=== PATIENT | female | born 1955 | race Caucasian/White ===

== ENCOUNTER 2016-08-01 06:44 | Emergency (ER) | payer MEDICAID ==
[2016-08-01 07:18] VITALS: BP 125/71
[2016-08-01] MEDS ORDERED: Acetaminophen/HYDROcodone 325-5 MG Tab PO ONE (07:43)
[2016-08-01] MEDS ORDERED: Albuterol/Ipratropium 3.0-0.5 MG/3 ML Neb Soln NEB ONE (07:43)
--- NOTE | 2016-08-01 08:23 | EDM.PDOC ---
ED HPI GENERAL MEDICAL PROBLEM - General Chief Complaint: Cardiovascular Problem Stated Complaint: SWOLLEN LT LEG Time Seen by Provider: 08/01/16 07:00 Source of Information: Reports: Patient, Family History Limitations: Reports: Physical Impairment - History of Present Illness Onset Date: 07/27/16 Onset Time: 17:00 Duration: Day(s): Location: Reports: Lower Extremity, Left, Lower Extremity, Right Bilateral Lower Leg Pain Score (Numeric/FACES): 5 - Related Data Allergies Allergy/AdvReac Type Severity Reaction Status Date / Time acetaminophen [From Percocet] Allergy Rash Verified 08/01/16 07:37 aspirin [From Percodan] Allergy Rash Verified 08/01/16 07:37 carbamazepine [From Tegretol] Allergy Confusion Verified 08/01/16 07:37 codeine Allergy Cannot Verified 08/01/16 07:37 Remember meperidine [From Demerol] Allergy Rash Verified 08/01/16 07:37 morphine Allergy Rash Verified 08/01/16 07:37 oxycodone [From Percocet] Allergy Rash Verified 08/01/16 07:37 Home Meds: Home Meds Acetaminophen/HYDROcodone [[place] 325-5 MG] 1 tab PO ONETIME PRN #2 tablet [Rx] Albuterol [Proventil Neb Soln] 2.5 mg .XX Q6HR PRN 08/01/16 [History] Aspirin [Halfprin] 81 mg PO DAILY 08/01/16 [History] Citalopram [Celexa] 20 mg PO DAILY 08/01/16 [History] ClonazePAM [KlonoPIN] 0.5 mg PO BID PRN 08/01/16 [History] rOPINIRole [Requip] 0.5 mg PO BEDTIME 08/01/16 [History] traZODone 50 mg PO BEDTIME 08/01/16 [History] ED ROS GENERAL - Review of Systems Review Of Systems: See Below Constitutional: Reports: No Symptoms HEENT: Reports: No Symptoms Respiratory: Reports: Wheezing Cardiovascular: Reports: No Symptoms Endocrine: Reports: No Symptoms GI/Abdominal: Reports: No Symptoms : Reports: No Symptoms Musculoskeletal: Reports: Foot Pain, Other (lower legs swelling) Skin: Reports: No Symptoms Neurological: Reports: No Symptoms Psychiatric: Reports: No Symptoms Hematologic/Lymphatic: Reports: No Symptoms Immunologic: Reports: No Symptoms ED EXAM, GENERAL - Physical Exam Exam: See Below Exam Limited By: No Limitations General Appearance: Alert, WD/WN, Moderate Distress Eye Exam: Bilateral Eye: Normal Inspection Ears: Normal External Exam Ear Exam: Bilateral Ear: Auricle Normal Nose: Normal Inspection Throat/Mouth: Normal Inspection, Normal Lips Head: Atraumatic, Normocephalic Neck: Normal Inspection, Supple, Non-Tender, Full Range of Motion Respiratory/Chest: Wheezing Cardiovascular: Normal Peripheral Pulses, Regular Rate, Rhythm, No Edema, No Gallop, No JVD, No Murmur, No Rub Peripheral Pulses: 2+: Femoral (L), Femoral (R) GI/Abdominal: Normal Bowel Sounds, Soft, Non-Tender, No Organomegaly, No Distention, No Abnormal Bruit (Female) Exam: Deferred Rectal (Female) Exam: Normal Exam Back Exam: Normal Inspection Extremities: Pedal Edema, Joint Swelling, Leg Pain Neurological: Alert, Oriented, CN II-XII Intact, Normal Cognition Psychiatric: Normal Affect, Normal Mood Course - Vital Signs Last Recorded V/S: Last Vital Signs Temp 36.5 C 08/01/16 07:00 Pulse 90 08/01/16 08:00 Resp 18 08/01/16 07:00 BP 125/71 08/01/16 07:00 Pulse Ox 94 L 08/01/16 08:00 - Orders/Labs/Meds Labs: Laboratory Tests 08/01/16 08/01/16 08/01/16 Range/Units 08:00 08:00 08:00 WBC 11.8 (4.5-12.0) X10-3/uL RBC 4.19 (3.23-5.20) x10(6)uL Hgb 12.8 (11.5-15.5) g/dL Hct 37.8 (30.0-51.3) % MCV 90.3 (80-96) fL MCH 30.6 (27.7-33.6) pg MCHC 33.8 (32.2-35.4) g/dL RDW 14.1 (11.5-15.5) % Plt Count 191 (125-369) X10(3)uL MPV 8.0 (7.4-10.4) fL Neut % (Auto) 73.5 (46-82) % Lymph % (Auto) 16.7 (13-37) % [place] % (Auto) 8.2 (4-12) % Eos % (Auto) 1 (1.0-5.0) % Baso % (Auto) 0 (0-2) % Neut # (Auto) 8.6 H (1.6-8.3) # Lymph # (Auto) 2.0 (0.6-5.0) # [place] # (Auto) 1.0 (0.0-1.3) # Eos # (Auto) 0.2 (0.0-0.8) # Baso # (Auto) 0.0 (0.0-0.2) # Sodium 136 (135-145) mmol/L Potassium 3.6 (3.5-5.3) mmol/L Chloride 100 (100-110) mmol/L Carbon Dioxide 28 (23-29) mmol/L BUN 10 (8-23) mg/dL Creatinine 0.7 (0.6-1.3) mg/dL Est Cr Clr Drug Dosing 61.39 mL/min Estimated GFR (MDRD) > 60 (>60) BUN/Creatinine Ratio 14.3 (9-20) Glucose 118 H (80-116) mg/dL Calcium 8.6 (8.6-10.2) mg/dL B-Natriuretic Peptide 15 (0-100) pg/mL Meds: Medications Discontinued Medications Generic Name Dose Route Start Last Admin Trade Name Freq PRN Reason Stop Dose Admin Hydrocodone Bitart/Acetaminophen 1 tab 08/01/16 07:43 08/01/16 08:06 [place] 325-5 Mg PO 08/01/16 07:44 1 tab ONETIME ONE Administration Albuterol/Ipratropium 3 ml 08/01/16 07:43 08/01/16 07:54 Duoneb 3.0-0.5 Mg/3 Ml NEB 08/01/16 07:44 3 ml ONETIME ONE Administration Departure - Departure Time of Disposition: 08:59 Disposition: Home, Self-Care 01 Condition: good Clinical Impression: Lymphedema of both lower extremities Prescriptions: Acetaminophen/HYDROcodone [[place] 325-5 MG] 1 tab PO ONETIME PRN #2 tablet PRN Reason: severe pain only Referrals: Jorge A Ortiz MD [Primary Care Provider] - Forms: ED Department Discharge Additional Instructions: Please elevate both lower extremities above your heart, please apply SHEILA wraps to your lower extremities when in upright position, please follow up, please come back to the ed if your symptoms get worse acutely.
== END 2016-08-01 09:15 | disposition home or self-care (01) ==
LOC: FB.ED 06:44
DX: I89.0 Lymphedema, not elsewhere classified (principal); Z88.5 Allergy status to narcotic agent; Z88.6 Allergy status to analgesic agent; Z79.82 Long term (current) use of aspirin; Z79.899 Other long term (current) drug therapy
CPT/HCPCS: 36415; 80048; 83880; 85025; 94664; 99284; A9270; J7620

== ENCOUNTER 2016-08-31 07:38 | Day surgery (SDC) | payer MEDICAID ==
[~2016-08-31 07:38] MED LIST: Lactated Ringers 1,000 ML IV SCH
[2016-08-31] MEDS ORDERED: Lidocaine 2% 100 MG/5 ML Syringe IVPUSH ONE (08:35)
[2016-08-31] MEDS ORDERED: Lactated Ringers 1,000 ML IV ONE (08:35)
[2016-08-31] MEDS ORDERED: Midazolam 1 MG/ML 2 ML SDV IV ONE (08:35)
[2016-08-31] MEDS ORDERED: Propofol 200 MG/20 ML SDV IV ONE (08:35)
--- NOTE | 2016-08-31 09:03 | PCM.OPNOTE ---
- General Post-Op/Procedure Note Date of Surgery/Procedure: 08/31/16 Operative Procedure(s): egd with bx Findings: gastroduodenitis antral ulcer esophagitis Pre Op Diagnosis: gerd. pill esophagitis Post-Op Diagnosis: gastroduodenitis antral ulcer. esophagitis Anesthesia Technique: [facility] [place] Primary Surgeon: Kyle Erickson Anesthesia Provider: Estephania Garcia Pathology: duodenum stomach (antrum and including ulcer edge) distal esophagus Complications: None Condition: Good Free Text/Narrative:: see dictation
[2016-08-31 09:53] VITALS: BP 135/68
--- NOTE | 2016-08-31 11:26 | OR ---
DATE OF OPERATION: 08/31/2016 SURGEON: Kyle Erickson MD PROCEDURE PERFORMED: Esophagogastroduodenoscopy with cold forceps biopsy. PREOPERATIVE DIAGNOSIS: History of gastroesophageal reflux disease and questionable pill esophagitis. POSTOPERATIVE DIAGNOSIS: Esophagitis and gastroduodenitis with gastritis limited to the antrum as well as what appears to be a healing gastric ulcer of the antrum. INDICATIONS FOR PROCEDURE: This is a 61-year-old white female, who was referred with a complaint of some pill dysphagia, and has gotten fairly better. She also has a longstanding history of reflux. She was offered and accepted an EGD as part of her evaluation. DESCRIPTION OF PROCEDURE: After an excellent IV sedation was administered, the bite block was inserted. The flexible endoscope was passed without difficulty deep down the patient's esophagus into the stomach. Stomach was insufflated. Scope was passed through the pylorus to the second portion of duodenum and slowly withdrawn. The following findings were noted. First portion of duodenum demonstrates mild gastritis. Photos and biopsies were taken. Stomach: In the antrum, there was marked inflammation what appears to be healing ulcer. Biopsies were taken of the ulcer as well as the antrum. GE junction measured approximately 35 cm and was a regular with findings highly consistent with Martin's. Biopsies were taken. The remainder of the esophagus was carefully inspected and I did not note any ulcerations or irritation suggestive of healing ulcer from pill. The stomach was deflated. The scope was removed. The patient tolerated the procedure well and was taken to recovery room in good condition. /[id number] /MODL
== END 2016-08-31 10:10 | disposition home or self-care (01) ==
LOC: FB.SDS 07:38
PROVIDERS: ATTEND Surgery
PROC: 0DB98ZX Excision of Duodenum, Via Natural or Artificial Opening Endoscopic, Diagnostic (ICD-10-PCS; principal; 2016-08-31)
PROC: 0DB48ZX Excision of Esophagogastric Junction, Via Natural or Artificial Opening Endoscopic, Diagnostic (ICD-10-PCS; 2016-08-31)
DX: K20.8 Other esophagitis (principal); K29.80 Duodenitis without bleeding; K29.50 Unspecified chronic gastritis without bleeding; K31.9 Disease of stomach and duodenum, unspecified
CPT/HCPCS: 43239; 88305; 88313; 88342; J2250; J2704; J7120

== ENCOUNTER → 2019-01-25 | Outpatient (CLI) | payer MEDICARE, MEDICAID | LOC: FB.MH 08:00 | PROVIDERS: ATTEND Psychiatry & Neurology Psychiatry | DX: F32.9 Major depressive disorder, single episode, unspecified (principal) | CPT/HCPCS: 90792 ==

== ENCOUNTER 2019-03-22 17:11 | Inpatient (IN) | payer MEDICARE, MEDICAID ==
[2019-03-22] MEDS ORDERED: Albuterol/Ipratropium 3.0-0.5 MG/3 ML Neb Soln NEB ONE (17:35)
[2019-03-22] MEDS ORDERED: Dexamethasone 4 MG/ML SDV IVPUSH ONE (17:35)
--- NOTE | 2019-03-22 17:42 | EDM.PDOC ---
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 Denies chest pain or h/o CAD. Has been using her nebulizers w/o improvement. Has had subjective fevers and chills. Did not receive the flu shot this season. Patient believes she may have pneumonia. Duration: Day(s): (5) Severity: Moderate - Related Data Allergies Allergy/AdvReac Type Severity Reaction Status Date / Time acetaminophen [From Percocet] Allergy Rash Verified 08/31/16 07:55 carbamazepine [From Tegretol] Allergy Confusion Verified 08/31/16 07:55 codeine Allergy Cannot Verified 08/31/16 07:55 Remember meperidine [From Demerol] Allergy Rash Verified 08/31/16 07:55 morphine Allergy Rash Verified 08/31/16 07:55 oxycodone [From Percocet] Allergy Rash Verified 08/31/16 07:55 Home Meds: Home Meds Albuterol [Proventil Neb Soln] 2.5 mg .XX TID 08/01/16 [History] Citalopram [Citalopram HBr] 20 mg PO DAILY 08/01/16 [History] ClonazePAM [KlonoPIN] 0.5 mg PO BID 08/01/16 [History] rOPINIRole [Requip] 0.5 - 1 mg PO BEDTIME PRN 08/01/16 [History] traZODone 50 mg PO BEDTIME PRN 08/01/16 [History] Albuterol [Ventolin HFA] 1 puff IH Q4H PRN 08/30/16 [History] Cyclobenzaprine [Flexeril] 5 mg PO TID 08/30/16 [History] Pantoprazole Sodium [Protonix] 40 mg PO DAILY #30 tablet. 08/31/16 [Rx] Past Medical History HEENT History: Reports: Allergic Rhinitis Cardiovascular History: Reports: Hypertension Respiratory History: Reports: COPD, Other (See Below) Other Respiratory History: PULMONARY EMPHYSEMA; LUNG NODULE Gastrointestinal History: Reports: GERD PARK GUIDE History: Reports: Other PARK GUIDE History: x2, hyst Musculoskeletal History: Reports: None Neurological History: Reports: Other (See Below) Other Neuro History: RESTLESS LEG SYNDROME. INSOMNIA Psychiatric History: Reports: Addiction, Anxiety, Bipolar, Depression, Psych Hospitalization(s) Hematologic History: Reports: Anemia Immunologic History: Reports: None Oncologic (Cancer) History: Reports: None Dermatologic History: Reports: None - Past Surgical History Head Surgeries/Procedures: Reports: None HEENT Surgical History: Reports: Tonsillectomy GI Surgical History: Reports: Appendectomy, Hernia, Abdominal Female Surgical History: Reports: Breast Reduction, Section, Hysterectomy Social & Family History - Family History Cardiac: Reports: CAD, Hypertension, [place] - Tobacco Use Tobacco Use Within Last Twelve Months: No - Caffeine Use Caffeine Use: Reports: Coffee, Soda ED ROS GENERAL - Review of Systems Review Of Systems: Comprehensive ROS is negative, except as noted in HPI. ED EXAM, GENERAL - Physical Exam Exam: See Below Exam Limited By: No Limitations General Appearance: Alert, WD/WN, No Apparent Distress Throat/Mouth: No Airway Compromise Head: Atraumatic, Normocephalic Neck: Full Range of Motion Respiratory/Chest: No Respiratory Distress, Decreased Breath Sounds, Wheezing Cardiovascular: Regular Rate, Rhythm, No Murmur Extremities: Non-Tender, No Pedal Edema Neurological: Alert, Normal Cognition, No Motor/Sensory Deficits Psychiatric: Normal Affect, Normal Mood Skin Exam: Warm, Dry, Intact EKG INTERPRETATION EKG Date: 03/22/19 Time: 17:26 Rhythm: Other (sinus tachycardia) Rate (Beats/Min): 115 [place]: Normal P-Wave: Present QRS: Normal ST-T: Normal QT: Normal Course - Vital Signs Last Recorded V/S: Last Vital Signs Temp 36.9 C 03/22/19 17:11 Pulse 117 H 03/22/19 17:11 Resp 32 H 03/22/19 17:11 BP 132/47 L 03/22/19 17:11 Pulse Ox 94 L 03/22/19 17:11 - Orders/Labs/Meds Orders: Active Orders 24 hr Category Date Time Status EKG Documentation Completion [RC] ASDIRECTED Care 03/22/19 17:31 Active RT Aerosol Therapy [RC] ASDIRECTED Care 03/22/19 17:36 Active CXR [Chest 1V Frontal] [CR] Stat Exams 03/22/19 17:31 Taken CULTURE BLOOD [BC] Urgent Lab 03/22/19 17:40 Received CULTURE BLOOD [BC] Urgent Lab 03/22/19 17:50 Received Sodium Chloride 0.9% [Saline Flush] Med 03/22/19 17:34 Active 10 ml FLUSH ASDIRECTED PRN Blood Culture x2 Reflex Set [OM.PC] Urgent Oth 03/22/19 17:32 Ordered Saline Lock Insert [OM.PC] Routine Oth 03/22/19 17:34 Ordered EKG 12 Lead [EK] Stat Ther 03/22/19 17:31 Ordered Medication Orders Sodium Chloride (Saline Flush) 10 ml FLUSH ASDIRECTED PRN PRN Reason: Keep Vein Open Last Admin: 03/22/19 19:10 Dose: 10 ml Labs: Laboratory Tests 03/22/19 03/22/19 03/22/19 Range/Units 17:40 17:40 17:40 WBC 5.7 (4.5-12.0) X10-3/uL RBC 4.63 (3.23-5.20) x10(6)uL Hgb 14.0 (11.5-15.5) g/dL Hct 42.4 (30.0-51.3) % MCV 91.4 (80-96) fL MCH 30.3 (27.7-33.6) pg MCHC 33.1 (32.2-35.4) g/dL RDW 12.1 (11.5-15.5) % Plt Count 164 (125-369) X10(3)uL MPV 8.5 (7.4-10.4) fL Neut % (Auto) 76.8 (46-82) % Lymph % (Auto) 12.3 L (13-37) % [place] % (Auto) 10.8 (4-12) % Eos % (Auto) 0 L (1.0-5.0) % Baso % (Auto) 0 (0-2) % Neut # (Auto) 4.4 (1.6-8.3) # Lymph # (Auto) 0.7 (0.6-5.0) # [place] # (Auto) 0.6 (0.0-1.3) # Eos # (Auto) 0.0 (0.0-0.8) # Baso # (Auto) 0.0 (0.0-0.2) # PT 9.3 (8.7-11.1) INR 0.96 (0.89-1.13) APTT 28.3 (24.4-33.2) SECONDS D-Dimer, Quantitative 0.50 (0.0-0.59) mg/LFEU POC VBG pH (7.31-7.41) POC VBG pCO2 (41-51) mmHG POC VBG HCO3 (23-28) mmol/L POC VBG Total CO2 (24-29) mmol/L POC VBG Base Excess (-2-3) mmol/L Sodium 135 (135-145) mmol/L Potassium 3.4 L (3.5-5.3) mmol/L Chloride 96 L (100-110) mmol/L Carbon Dioxide 31 (21-32) mmol/L BUN 12 (7-18) mg/dL Creatinine 0.6 (0.55-1.02) mg/dL Est Cr Clr Drug Dosing TNP Estimated GFR (MDRD) > 60 (>60) BUN/Creatinine Ratio 20.0 (9-20) Glucose 144 H (80-116) mg/dL Lactic Acid (0.4-2.0) mmol/L Calcium 8.0 L (8.6-10.2) mg/dL Total Bilirubin 0.7 (0.1-1.3) mg/dL AST 51 H (5-25) IU/L ALT 33 (12-36) U/L Alkaline Phosphatase 78 (56-112) IU/L Troponin I (<0.017-0.056) ng/mL Total Protein 6.8 (6.0-8.0) g/dL Albumin 3.3 (3.2-4.6) g/dL Globulin 3.5 g/dL Albumin/Globulin Ratio 0.9 03/22/19 03/22/19 03/22/19 Range/Units 17:40 17:50 20:27 WBC (4.5-12.0) X10-3/uL RBC (3.23-5.20) x10(6)uL Hgb (11.5-15.5) g/dL Hct (30.0-51.3) % MCV (80-96) fL MCH (27.7-33.6) pg MCHC (32.2-35.4) g/dL RDW (11.5-15.5) % Plt Count (125-369) X10(3)uL MPV (7.4-10.4) fL Neut % (Auto) (46-82) % Lymph % (Auto) (13-37) % [place] % (Auto) (4-12) % Eos % (Auto) (1.0-5.0) % Baso % (Auto) (0-2) % Neut # (Auto) (1.6-8.3) # Lymph # (Auto) (0.6-5.0) # [place] # (Auto) (0.0-1.3) # Eos # (Auto) (0.0-0.8) # Baso # (Auto) (0.0-0.2) # PT (8.7-11.1) INR (0.89-1.13) APTT (24.4-33.2) SECONDS D-Dimer, Quantitative (0.0-0.59) mg/LFEU POC VBG pH 7.33 (7.31-7.41) POC VBG pCO2 57.5 H (41-51) mmHG POC VBG HCO3 30.3 H (23-28) mmol/L POC VBG Total CO2 32 H (24-29) mmol/L POC VBG Base Excess 4 H (-2-3) mmol/L Sodium (135-145) mmol/L Potassium (3.5-5.3) mmol/L Chloride (100-110) mmol/L Carbon Dioxide (21-32) mmol/L BUN (7-18) mg/dL Creatinine (0.55-1.02) mg/dL Est Cr Clr Drug Dosing Estimated GFR (MDRD) (>60) BUN/Creatinine Ratio (9-20) Glucose (80-116) mg/dL Lactic Acid 1.0 (0.4-2.0) mmol/L Calcium (8.6-10.2) mg/dL Total Bilirubin (0.1-1.3) mg/dL AST (5-25) IU/L ALT (12-36) U/L Alkaline Phosphatase (56-112) IU/L Troponin I < 0.017 L (<0.017-0.056) ng/mL Total Protein (6.0-8.0) g/dL Albumin (3.2-4.6) g/dL Globulin g/dL Albumin/Globulin Ratio Meds: Medications Generic Name Dose Route Start Last Admin Trade Name Freq PRN Reason Stop Dose Admin Sodium Chloride 10 ml 03/22/19 17:34 03/22/19 19:10 Saline Flush FLUSH 10 ml ASDIRECTED PRN Administration Keep Vein Open Discontinued Medications Generic Name Dose Route Start Last Admin Trade Name Freq PRN Reason Stop Dose Admin Albuterol/Ipratropium 3 ml 03/22/19 17:35 03/22/19 19:05 Duoneb 3.0-0.5 Mg/3 Ml NEB 03/22/19 17:36 3 ml ONETIME ONE Administration Dexamethasone 10 mg 03/22/19 17:35 03/22/19 19:05 Dexamethasone IVPUSH 03/22/19 17:36 10 mg ONETIME ONE Administration Oseltamivir Phosphate 75 mg 03/22/19 19:21 03/22/19 19:49 Tamiflu PO 03/22/19 19:22 75 mg ONETIME ONE Administration - Radiology Interpretation Free Text/Narrative:: CXR: Hyperinflation, no infiltrates, no cardiomegaly. (ED provider interpretation) - Re-Assessments/Exams Free Text/Narrative Re-Assessment/Exam: 03/22/19 21:11 Symptoms improved after Duoneb and Decadron 10mg IV. Improved expiratory wheeze and aeration on re-exam. Departure - Departure Time of Disposition: 21:14 Disposition: Admitted As Inpatient 66 Condition: Fair Clinical Impression: Influenza A, COPD exacerbation - Discharge Information *PRESCRIPTION DRUG MONITORING PROGRAM REVIEWED*: No *COPY OF PRESCRIPTION DRUG MONITORING REPORT IN PATIENT ALBIN: Not Applicable Forms: ED Department Discharge Sepsis Event Note - Focused Exam Vital Signs: Vital Signs Temp Pulse Resp BP Pulse Ox 03/22/19 17:11 36.9 C 117 H 32 H 132/47 L 94 L Date Exam was Performed: 03/22/19 Time Exam was Performed: 21:03 - My Orders Last 24 Hours: My Active Orders 03/22/19 17:31 EKG Documentation Completion [RC] ASDIRECTED CXR [Chest 1V Frontal] [CR] Stat EKG 12 Lead [EK] Stat 03/22/19 17:32 Blood Culture x2 Reflex Set [OM.PC] Urgent 03/22/19 17:34 Sodium Chloride 0.9% [Saline Flush] 10 ml FLUSH ASDIRECTED PRN Saline Lock Insert [OM.PC] Routine 03/22/19 17:36 RT Aerosol Therapy [RC] ASDIRECTED 03/22/19 17:40 CULTURE BLOOD [BC] Urgent 03/22/19 17:50 CULTURE BLOOD [BC] Urgent - Assessment/Plan Last 24 Hours: My Active Orders 03/22/19 17:31 EKG Documentation Completion [RC] ASDIRECTED CXR [Chest 1V Frontal] [CR] Stat EKG 12 Lead [EK] Stat 03/22/19 17:32 Blood Culture x2 Reflex Set [OM.PC] Urgent 03/22/19 17:34 Sodium Chloride 0.9% [Saline Flush] 10 ml FLUSH ASDIRECTED PRN Saline Lock Insert [OM.PC] Routine 03/22/19 17:36 RT Aerosol Therapy [RC] ASDIRECTED 03/22/19 17:40 CULTURE BLOOD [BC] Urgent 03/22/19 17:50 CULTURE BLOOD [BC] Urgent
[2019-03-22] MEDS: Sodium Chloride 0.9% 10 ML Syringe FLUSH PRN ×2 (19:10→22:13)
[2019-03-22] MEDS ORDERED: Oseltamivir 75 MG Cap PO ONE (19:21)
[2019-03-22] MEDS ORDERED: Albuterol 0.083% 2.5 MG/3 ML Neb Soln NEB PRN (21:34)
[2019-03-22] MEDS ORDERED: traZODone 50 MG Tab PO PRN (21:44)
[2019-03-22] MEDS ORDERED: rOPINIRole 0.5 MG Tab PO PRN (21:44)
[2019-03-22] MEDS: methylPREDNISolone Sodium Succinate 40 MG/1 ML SDV IVPUSH SCH (22:13)
[2019-03-23] MEDS: methylPREDNISolone Sodium Succinate 40 MG/1 ML SDV IVPUSH SCH (05:18)
[2019-03-23] MEDS: Sodium Chloride 0.9% 10 ML Syringe FLUSH PRN (05:19)
[2019-03-23] MEDS: Albuterol/Ipratropium 3.0-0.5 MG/3 ML Neb Soln INH SCH ×4 (06:21→20:02)
[2019-03-23] MEDS ORDERED: Temazepam 15 MG Cap PO PRN ×2 (08:40→09:13)
[2019-03-23] MEDS ORDERED: Pantoprazole 40 MG Tab.CR PO SCH ×3 (09:00→21:00)
[2019-03-23] MEDS ORDERED: Cyclobenzaprine 10 MG Tab PO SCH (09:00)
[2019-03-23] MEDS ORDERED: Cyclobenzaprine 10 MG Tab PO PRN (09:00)
[2019-03-23] MEDS ORDERED: ClonazePAM 0.5 MG Tab PO SCH (09:00)
[2019-03-23] MEDS ORDERED: Citalopram 20 MG Tab PO SCH (09:00)
[2019-03-23] MEDS: Enoxaparin 40 MG/0.4 ML Syringe SUBCUT SCH (10:22)
[2019-03-23] MEDS: Rosuvastatin 10 MG Tab PO SCH (10:22)
[2019-03-23] MEDS: predniSONE 20 MG Tab PO SCH (10:22)
[2019-03-23] MEDS: Oseltamivir 75 MG Cap PO SCH ×2 (10:30→20:03)
[2019-03-23] MEDS ORDERED: methylPREDNISolone Sodium Succinate 125 MG/2 ML SDV IVPUSH SCH (11:00)
--- NOTE | 2019-03-23 12:11 | CR ---
INDICATION: Short of breath. CHEST, ONE VIEW: Portable AP upright view of the chest 03/22/[address] of the chest 09/28/18 as well as chest x-ray from 08/27/16 again revealing findings compatible with COPD. Heavy markings are noted at the lung bases making it difficult to exclude patchy bronchopneumonia. The heart did not appear enlarged and appeared similar in size to the previous examinations. The aorta is calcified in the arch area. Overlying EKG leads are noted. There is again noted evidence of exogenous obesity, but to a greater extent than on the previous study. IMPRESSION: 1. No definite acute process, but difficult to exclude areas of patchy bronchopneumonia at the lung bases - full inspiration PA and lateral views of the chest may be helpful for further evaluation. 2. ASD aorta. 3. COPD. 4. Exogenous obesity. MTDD
[2019-03-23] MEDS ORDERED: Magnesium Hydroxide 400 MG/5 ML Susp 30 ML Cup PO PRN (13:54)
[2019-03-23] MEDS ORDERED: Naproxen 500 MG Tab PO PRN (14:21)
--- NOTE | 2019-03-23 16:06 | PCM.HP.2 ---
H&P History of Present Illness - General Date of Service: 03/23/19 Admit Problem/Dx: Admission Diagnosis/Problem Admission Diagnosis/Problem COPD with acute lower respiratory infection Source of Information: Patient, EMS Notes Reviewed History Limitations: Reports: No Limitations - History of Present Illness Initial Comments - Free Text/Narative: This is a 64 year-old oxygen dependent patient with COPD. He states 5 days ago she was exposed to her grandchildren that had influenza. She did not get a flu shot this year. She had a cough for the first 3 days, fevers, chills, body aches. Most that got better except for the cough and then she became very short of breath. She came to the ER and then was admitted. DENIES ANY PAIN WHEN ASKED AT PRESENT TIME. Pain Score (Numeric/FACES): 0 CORY.LOWER BACK AND NECK Pain Score (Numeric/FACES): 3 - Related Data Allergies/Adverse Reactions: Allergies Allergy/AdvReac Type Severity Reaction Status Date / Time acetaminophen [From Percocet] Allergy Rash Verified 03/22/19 23:44 carbamazepine [From Tegretol] Allergy Confusion Verified 03/22/19 23:44 codeine Allergy Cannot Verified 03/22/19 23:44 Remember meperidine [From Demerol] Allergy Rash Verified 03/22/19 23:44 morphine Allergy Rash Verified 03/22/19 23:44 oxycodone [From Percocet] Allergy Rash Verified 03/22/19 23:44 Home Medications: Home Meds ClonazePAM [KlonoPIN] 0.5 mg PO BID PRN 08/01/16 [History] rOPINIRole [Requip] 0.5 - 1 mg PO BEDTIME PRN 08/01/16 [History] Albuterol [Ventolin HFA] 1 - 2 puff IH Q4H PRN 08/30/16 [History] Cyclobenzaprine [Flexeril] 5 mg PO TID PRN 08/30/16 [History] Albuterol/Ipratropium [DuoNeb 3.0-0.5 MG/3 ML] 3 ml IH TID 03/23/19 [History] Fluticasone/Umeclidin/Vilanter [Trelegy Ellipta 100-62.5-25] 1 inh INH DAILY [History] Pantoprazole Sodium [Protonix] 40 mg PO BEDTIME 03/23/19 [History] Temazepam 15 mg PO BEDTIME PRN 03/23/19 [History] Past Medical History HEENT History: Reports: Allergic Rhinitis Cardiovascular History: Reports: Hypertension Respiratory History: Reports: COPD, Other (See Below) Other Respiratory History: PULMONARY EMPHYSEMA; LUNG NODULE Gastrointestinal History: Reports: [employer] History: Reports: Other OB/BYN History: x2, hyst Musculoskeletal History: Reports: None Neurological History: Reports: Other (See Below) Other Neuro History: RESTLESS LEG SYNDROME. INSOMNIA Psychiatric History: Reports: Addiction, Anxiety, Bipolar, Depression, Psych Hospitalization(s) Hematologic History: Reports: Anemia Immunologic History: Reports: None Oncologic (Cancer) History: Reports: None Dermatologic History: Reports: Cellulitis - Infectious Disease History Infectious Disease History: Reports: Chicken Pox, Measles, Mumps, Pertussis ( Whooping Cough), Scarlet Fever - Past Surgical History Head Surgeries/Procedures: Reports: None HEENT Surgical History: Reports: Tonsillectomy Cardiovascular Surgical History: Reports: None Respiratory Surgical History: Reports: None GI Surgical History: Reports: Appendectomy, Hernia, Abdominal Female Surgical History: Reports: Breast Reduction, Section, Hysterectomy Neurological Surgical History: Reports: None Social & Family History - Family History Family Medical History: Noncontributory Cardiac: Reports: CAD, Hypertension, IN - Tobacco Use Smoking Status *Q: Former Smoker Years of Tobacco use: 48 Packs/Tins Daily: 0.2 Used Tobacco, but Quit: Yes Month/Year Tobacco Last Used: Second Hand Smoke Exposure: No - Caffeine Use Caffeine Use: Reports: Soda Other Caffeine Use: 5 a day - Recreational Drug Use Recreational Drug Use: No H&P Review of Systems - Review of Systems: Review Of Systems: See Below General: Denies: Fever, Chills, Malaise, Weakness, Decreased Appetite HEENT: Reports: No Symptoms Pulmonary: Reports: Shortness of Breath, Cough. Denies: Wheezing, Pleuritic Chest Pain, Sputum, Hemoptysis Cardiovascular: Reports: No Symptoms Gastrointestinal: Reports: No Symptoms Genitourinary: Reports: No Symptoms Musculoskeletal: Reports: No Symptoms Skin: Reports: No Symptoms Psychiatric: Reports: No Symptoms Neurological: Reports: No Symptoms Hematologic/Lymphatic: Reports: No Symptoms Immunologic: Reports: No Symptoms Exam - Exam Exam: See Below - Vital Signs Vital Signs: Last Vital Signs Temp 97.3 F 03/23/19 07:45 Pulse 101 H 03/23/19 10:47 Resp 30 H 03/23/19 07:45 BP 161/76 H 03/23/19 07:45 Pulse Ox 99 03/23/19 07:45 Weight: 141 lb 14.4 oz - Exam General: Alert, Oriented, Cooperative HEENT: PERRLA, Hearing Intact, Mucosa Moist & Colome, Posterior Pharynx Clear, TMs Clear Neck: Supple, Trachea Midline Lungs: Normal Respiratory Effort, Decreased Breath Sounds, Rhonchi (Occasional) Cardiovascular: Regular Rate, Regular Rhythm. No: Systolic Murmur GI/Abdominal Exam: Normal Bowel Sounds, Soft, Non-Tender, No Organomegaly, No Distention, No Abnormal Bruit, No Mass Extremities: Normal Inspection, Normal Range of Motion, Non-Tender, No Pedal Edema Skin: Warm, Dry, Intact Neuro Extensive - Mental Status: Alert, Oriented x3, Normal Mood/Affect, Normal Cognition Neuro Extensive - Motor, Sensory, Reflexes: Normal Gait Psychiatric: Alert, Normal Affect, Normal Mood - Patient Data Lab Results Last 24 hrs: Laboratory Results - last 24 hr 03/22/19 03/22/19 03/22/19 Range/Units 17:40 17:40 17:40 WBC 5.7 (4.5-12.0) X10-3/uL RBC 4.63 (3.23-5.20) x10(6)uL Hgb 14.0 (11.5-15.5) g/dL Hct 42.4 (30.0-51.3) % MCV 91.4 (80-96) fL MCH 30.3 (27.7-33.6) pg MCHC 33.1 (32.2-35.4) g/dL RDW 12.1 (11.5-15.5) % Plt Count 164 (125-369) X10(3)uL MPV 8.5 (7.4-10.4) fL Neut % (Auto) 76.8 (46-82) % Lymph % (Auto) 12.3 L (13-37) % Gaines % (Auto) 10.8 (4-12) % Eos % (Auto) 0 L (1.0-5.0) % Baso % (Auto) 0 (0-2) % Neut # (Auto) 4.4 (1.6-8.3) # Lymph # (Auto) 0.7 (0.6-5.0) # Gaines # (Auto) 0.6 (0.0-1.3) # Eos # (Auto) 0.0 (0.0-0.8) # Baso # (Auto) 0.0 (0.0-0.2) # PT 9.3 (8.7-11.1) INR 0.96 (0.89-1.13) APTT 28.3 (24.4-33.2) SECONDS D-Dimer, Quantitative 0.50 (0.0-0.59) mg/LFEU POC VBG pH (7.31-7.41) POC VBG pCO2 (41-51) mmHG POC VBG HCO3 (23-28) mmol/L POC VBG Total CO2 (24-29) mmol/L POC VBG Base Excess (-2-3) mmol/L Sodium 135 (135-145) mmol/L Potassium 3.4 L (3.5-5.3) mmol/L Chloride 96 L (100-110) mmol/L Carbon Dioxide 31 (21-32) mmol/L BUN 12 (7-18) mg/dL Creatinine 0.6 (0.55-1.02) mg/dL Est Cr Clr Drug Dosing TNP Estimated GFR (MDRD) > 60 (>60) BUN/Creatinine Ratio 20.0 (9-20) Glucose 144 H (80-116) mg/dL Lactic Acid (0.4-2.0) mmol/L Calcium 8.0 L (8.6-10.2) mg/dL Total Bilirubin 0.7 (0.1-1.3) mg/dL AST 51 H (5-25) IU/L ALT 33 (12-36) U/L Alkaline Phosphatase 78 (56-112) IU/L Troponin I (<0.017-0.056) ng/mL Total Protein 6.8 (6.0-8.0) g/dL Albumin 3.3 (3.2-4.6) g/dL Globulin 3.5 g/dL Albumin/Globulin Ratio 0.9 03/22/19 03/22/19 03/22/19 Range/Units 17:40 17:50 20:27 WBC (4.5-12.0) X10-3/uL RBC (3.23-5.20) x10(6)uL Hgb (11.5-15.5) g/dL Hct (30.0-51.3) % MCV (80-96) fL MCH (27.7-33.6) pg MCHC (32.2-35.4) g/dL RDW (11.5-15.5) % Plt Count (125-369) X10(3)uL MPV (7.4-10.4) fL Neut % (Auto) (46-82) % Lymph % (Auto) (13-37) % Gaines % (Auto) (4-12) % Eos % (Auto) (1.0-5.0) % Baso % (Auto) (0-2) % Neut # (Auto) (1.6-8.3) # Lymph # (Auto) (0.6-5.0) # Gaines # (Auto) (0.0-1.3) # Eos # (Auto) (0.0-0.8) # Baso # (Auto) (0.0-0.2) # PT (8.7-11.1) INR (0.89-1.13) APTT (24.4-33.2) SECONDS D-Dimer, Quantitative (0.0-0.59) mg/LFEU POC VBG pH 7.33 (7.31-7.41) POC VBG pCO2 57.5 H (41-51) mmHG POC VBG HCO3 30.3 H (23-28) mmol/L POC VBG Total CO2 32 H (24-29) mmol/L POC VBG Base Excess 4 H (-2-3) mmol/L Sodium (135-145) mmol/L Potassium (3.5-5.3) mmol/L Chloride (100-110) mmol/L Carbon Dioxide (21-32) mmol/L BUN (7-18) mg/dL Creatinine (0.55-1.02) mg/dL Est Cr Clr Drug Dosing Estimated GFR (MDRD) (>60) BUN/Creatinine Ratio (9-20) Glucose (80-116) mg/dL Lactic Acid 1.0 (0.4-2.0) mmol/L Calcium (8.6-10.2) mg/dL Total Bilirubin (0.1-1.3) mg/dL AST (5-25) IU/L ALT (12-36) U/L Alkaline Phosphatase (56-112) IU/L Troponin I < 0.017 L (<0.017-0.056) ng/mL Total Protein (6.0-8.0) g/dL Albumin (3.2-4.6) g/dL Globulin g/dL Albumin/Globulin Ratio 03/23/19 03/23/19 Range/Units 06:35 06:35 WBC 2.4 L (4.5-12.0) X10-3/uL RBC 4.82 (3.23-5.20) x10(6)uL Hgb 14.7 (11.5-15.5) g/dL Hct 44.0 (30.0-51.3) % MCV 91.2 (80-96) fL MCH 30.4 (27.7-33.6) pg MCHC 33.3 (32.2-35.4) g/dL RDW 11.9 (11.5-15.5) % Plt Count 164 (125-369) X10(3)uL MPV 8.3 (7.4-10.4) fL Neut % (Auto) 81.4 (46-82) % Lymph % (Auto) 14.0 (13-37) % Gaines % (Auto) 4.4 (4-12) % Eos % (Auto) 0 L (1.0-5.0) % Baso % (Auto) 0 (0-2) % Neut # (Auto) 2.0 (1.6-8.3) # Lymph # (Auto) 0.3 L (0.6-5.0) # Gaines # (Auto) 0.1 (0.0-1.3) # Eos # (Auto) 0.0 (0.0-0.8) # Baso # (Auto) 0.0 (0.0-0.2) # PT (8.7-11.1) INR (0.89-1.13) APTT (24.4-33.2) SECONDS D-Dimer, Quantitative (0.0-0.59) mg/LFEU POC VBG pH (7.31-7.41) POC VBG pCO2 (41-51) mmHG POC VBG HCO3 (23-28) mmol/L POC VBG Total CO2 (24-29) mmol/L POC VBG Base Excess (-2-3) mmol/L Sodium 138 (135-145) mmol/L Potassium 4.5 D (3.5-5.3) mmol/L Chloride 98 L (100-110) mmol/L Carbon Dioxide 34 H (21-32) mmol/L BUN 13 (7-18) mg/dL Creatinine 0.8 (0.55-1.02) mg/dL Est Cr Clr Drug Dosing 51.70 Estimated GFR (MDRD) > 60 (>60) BUN/Creatinine Ratio 16.3 (9-20) Glucose 208 H (80-116) mg/dL Lactic Acid (0.4-2.0) mmol/L Calcium 8.8 (8.6-10.2) mg/dL Total Bilirubin (0.1-1.3) mg/dL AST (5-25) IU/L ALT (12-36) U/L Alkaline Phosphatase (56-112) IU/L Troponin I (<0.017-0.056) ng/mL Total Protein (6.0-8.0) g/dL Albumin (3.2-4.6) g/dL Globulin g/dL Albumin/Globulin Ratio Result Diagrams: 03/23/19 06:35 03/23/19 06:35 Eliseo Results Last 24 hrs: Microbiology 03/22/19 17:35 Influenza Type A Antigen Screen - Final Nasopharyngeal Swab Positive Influenza A Ag Influenza Type B Antigen Screen - Final NEGATIVE INFLUENZA B VIRUS AG REFERENCE RANGE: NEGATIVE Sepsis Event Note - Evaluation Sepsis Screening Result: No Definite Risk - Focused Exam Vital Signs: Vital Signs Temp Pulse Resp BP Pulse Ox 03/23/19 10:47 101 H 03/23/19 10:32 99 03/23/19 07:45 97.3 F 97 30 H 161/76 H 99 Date Exam was Performed: 03/23/19 Time Exam was Performed: 16:01 - Problem List (1) Palliative care status SNOMED Code(s): 712868301 ICD Code: Z51.5 - ENCOUNTER FOR PALLIATIVE CARE Status: Acute Current Visit: Yes (2) COPD exacerbation SNOMED Code(s): 095440638 ICD Code: J44.1 - CHRONIC OBSTRUCTIVE PULMONARY DISEASE W (ACUTE) EXACERBATION Status: Acute Current Visit: Yes (3) Influenza A SNOMED Code(s): 734717850 ICD Code: J10.1 - FLU DUE TO OTH IDENT INFLUENZA VIRUS W OTH RESP MANIFEST Status: Acute Current Visit: Yes Problem List Initiated/Reviewed/Updated: Yes Orders Last 24hrs: Active Orders 24 hr Category Date Time Status Admission Status [Patient Status] [ADT] Routine ADT 03/22/19 21:15 Active Ambulate [RC] PER UNIT ROUTINE Care 03/22/19 21:36 Active Notify Provider Vital Signs [RC] ASDIRECTED Care 03/22/19 21:36 Active Oxygen Therapy [RC] PRN Care 03/22/19 21:35 Active Pulse Oximetry [RC] CONTINUOUS Care 03/22/19 21:35 Active RT Aerosol Therapy [RC] ASDIRECTED Care 03/22/19 17:36 Active VTE/DVT Education [RC] Per Unit Routine Care 03/22/19 21:35 Active Vital Signs [RC] QSHIFT Care 03/22/19 21:35 Active Regular Diet [DIET] Diet 03/23/19 Breakfast Active CULTURE BLOOD [BC] Urgent Lab 03/22/19 17:40 Received CULTURE BLOOD [BC] Urgent Lab 03/22/19 17:50 Received Albuterol [Proventil Neb Soln] Med 03/22/19 21:34 Active 2.5 mg NEB Q2H PRN Albuterol/Ipratropium [DuoNeb 3.0-0.5 MG/3 ML] Med 03/23/19 07:00 Active 3 ml INH QIDRT ClonazePAM [KlonoPIN] Med 03/23/19 09:00 Active 0.5 mg PO BID PRN Cyclobenzaprine [Flexeril] Med 03/23/19 09:00 Active 5 mg PO TID PRN Enoxaparin [Lovenox] Med 03/23/19 09:15 Active 40 mg SUBCUT Q24H Magnesium Hydroxide [Milk of Magnesia] Med 03/23/19 13:54 Active 30 ml PO DAILY PRN Naproxen [Naprosyn] Med 03/23/19 14:21 Active 500 mg PO Q12H PRN Oseltamivir [Tamiflu] Med 03/23/19 09:00 Active 75 mg PO BID Pantoprazole [ProTONIX] Med 03/23/19 21:00 Active 40 mg PO BEDTIME Rosuvastatin [Crestor] Med 03/23/19 10:00 Active 10 mg PO DAILY Sodium Chloride 0.9% [Saline Flush] Med 03/22/19 17:34 Active 10 ml FLUSH ASDIRECTED PRN Temazepam [Restoril] Med 03/23/19 08:40 Active 15 mg PO BEDTIME PRN predniSONE Med 03/23/19 09:30 Active 60 mg PO DAILY rOPINIRole [Requip] Med 03/22/19 21:44 Active 0.5 mg PO BEDTIME PRN Blood Culture x2 Reflex Set [OM.PC] Urgent Oth 03/22/19 17:32 Ordered Saline Lock Insert [OM.PC] Routine Oth 03/22/19 17:34 Ordered Resuscitation Status Routine Resus Stat 03/22/19 21:34 Ordered EKG 12 Lead [EK] Stat Ther 03/22/19 17:31 Ordered Medication Orders Albuterol (Proventil Neb Soln) 2.5 mg NEB Q2H PRN PRN Reason: Shortness Of Breath/wheezing Albuterol/Ipratropium (Duoneb 3.0-0.5 Mg/3 Ml) 3 ml INH QIDRT [facility] Last Admin: 03/23/19 10:32 Dose: 3 ml Admin: 03/23/19 06:21 Dose: 3 ml Clonazepam (Klonopin) 0.5 mg PO BID PRN PRN Reason: ANXIETY Cyclobenzaprine HCl (Flexeril) 5 mg PO TID PRN PRN Reason: MUSCLE SPASMS Last Admin: 03/23/19 14:10 Dose: 5 mg Enoxaparin Sodium (Lovenox) 40 mg SUBCUT Q24H [facility] Last Admin: 03/23/19 10:22 Dose: 40 mg Magnesium Hydroxide (Milk Of Magnesia) 30 ml PO DAILY PRN PRN Reason: Constipation Last Admin: 03/23/19 14:03 Dose: 30 ml Naproxen (Naprosyn) 500 mg PO Q12H PRN PRN Reason: Pain Last Admin: 03/23/19 14:27 Dose: 500 mg Oseltamivir Phosphate (Tamiflu) 75 mg PO BID [facility] Stop: 03/28/19 09:01 Last Admin: 03/23/19 10:30 Dose: 75 mg Pantoprazole Sodium (Protonix) 40 mg PO BEDTIME [facility]ERA Prednisone (Prednisone) 60 mg PO DAILY [facility] Last Admin: 03/23/19 10:22 Dose: 60 mg Ropinirole HCl (Requip) 0.5 mg PO BEDTIME PRN PRN Reason: RLS Rosuvastatin Calcium (Crestor) 10 mg PO DAILY [facility] Last Admin: 03/23/19 10:22 Dose: 10 mg Sodium Chloride (Saline Flush) 10 ml FLUSH ASDIRECTED PRN PRN Reason: Keep Vein Open Last Admin: 03/23/19 05:19 Dose: 10 ml Admin: 03/22/19 22:13 Dose: 10 ml Admin: 03/22/19 19:10 Dose: 10 ml Temazepam (Restoril) 15 mg PO BEDTIME PRN PRN Reason: SLEEP Assessment/Plan Comment:: 1. Admit to inpatient. 2. IV steroids like converted to by mouth. 3. Tamiflu 4. Reviewed x-rays and no signs of a pneumonia so no treatment given. 5. Oxygen to keep sats greater than 90%. 6. Lovenox for VTE prophylaxi 7. Regular diet 8. Continue her home meds except for her inhalers 9. Enrique greenwood
[2019-03-23] MEDS: ClonazePAM 0.5 MG Tab PO PRN (23:24)
[2019-03-24] MEDS: Albuterol/Ipratropium 3.0-0.5 MG/3 ML Neb Soln INH SCH (06:01)
--- NOTE | 2019-03-24 07:33 | PCM.PN ---
- General Info Date of Service: 03/24/19 Admission Dx/Problem (Free Text): She states she still coughing but feels much better. Her breathing is better and oxygenation is better. She's reading about normal for her. She says she take her oxygen off and take a shower which is normally what she does at home. She denies fevers or chills. She asked to go home today. - Patient Data Vitals - Most Recent: Last Vital Signs Temp 97.9 F 03/23/19 23:51 Pulse 104 H 03/23/19 23:51 Resp 17 03/23/19 23:51 BP 138/72 03/24/19 07:09 Pulse Ox 95 03/24/19 03:00 Weight - Most Recent: 141 lb 14.4 oz I&O - Last 24 Hours: Intake & Output 03/23/19 03/24/19 03/24/19 22:59 06:59 14:59 Intake Total 225 Output Total 550 Balance -325 Lab Results Last 24 Hours: Laboratory Results - last 24 hr 03/23/19 Range/Units 06:35 Sodium 138 (135-145) mmol/L Potassium 4.5 D (3.5-5.3) mmol/L Chloride 98 L (100-110) mmol/L Carbon Dioxide 34 H (21-32) mmol/L BUN 13 (7-18) mg/dL Creatinine 0.8 (0.55-1.02) mg/dL Est Cr Clr Drug Dosing 51.70 mL/min Estimated GFR (MDRD) > 60 (>60) BUN/Creatinine Ratio 16.3 (9-20) Glucose 208 H (80-116) mg/dL Calcium 8.8 (8.6-10.2) mg/dL Eliseo Results Last 24 Hours: Microbiology 03/22/19 17:50 Aerobic Blood Culture - Preliminary Blood - Venous - Lab Draw NO GROWTH AFTER 1 DAY Anaerobic Blood Culture - Preliminary NO GROWTH AFTER 1 DAY 03/22/19 17:40 Aerobic Blood Culture - Preliminary Blood - Venous NO GROWTH AFTER 1 DAY Anaerobic Blood Culture - Preliminary NO GROWTH AFTER 1 DAY Med Orders - Current: Current Medications Albuterol (Proventil Neb Soln) 2.5 mg NEB Q2H PRN PRN Reason: Shortness Of Breath/wheezing Albuterol/Ipratropium (Duoneb 3.0-0.5 Mg/3 Ml) 3 ml INH QIDRT [facility] Last Admin: 03/24/19 06:01 Dose: 3 ml Clonazepam (Klonopin) 0.5 mg PO BID PRN PRN Reason: ANXIETY Last Admin: 03/23/19 23:24 Dose: 0.5 mg Cyclobenzaprine HCl (Flexeril) 5 mg PO TID PRN PRN Reason: MUSCLE SPASMS Last Admin: 03/23/19 14:10 Dose: 5 mg Enoxaparin Sodium (Lovenox) 40 mg SUBCUT Q24H [facility] Last Admin: 03/23/19 10:22 Dose: 40 mg Magnesium Hydroxide (Milk Of Magnesia) 30 ml PO DAILY PRN PRN Reason: Constipation Last Admin: 03/23/19 14:03 Dose: 30 ml Naproxen (Naprosyn) 500 mg PO Q12H PRN PRN Reason: Pain Last Admin: 03/23/19 14:27 Dose: 500 mg Oseltamivir Phosphate (Tamiflu) 75 mg PO BID [facility] Stop: 03/28/19 09:01 Last Admin: 03/23/19 20:03 Dose: 75 mg Pantoprazole Sodium (Protonix) 40 mg PO BEDTIME [facility] Last Admin: 03/23/19 20:03 Dose: 40 mg Prednisone (Prednisone) 60 mg PO DAILY [facility] Last Admin: 03/23/19 10:22 Dose: 60 mg Ropinirole HCl (Requip) 0.5 mg PO BEDTIME PRN PRN Reason: RLS Rosuvastatin Calcium (Crestor) 10 mg PO DAILY [facility] Last Admin: 03/23/19 10:22 Dose: 10 mg Sodium Chloride (Saline Flush) 10 ml FLUSH ASDIRECTED PRN PRN Reason: Keep Vein Open Last Admin: 03/23/19 05:19 Dose: 10 ml Temazepam (Restoril) 15 mg PO BEDTIME PRN PRN Reason: SLEEP Last Admin: 03/23/19 23:08 Dose: 15 mg Discontinued Medications Albuterol/Ipratropium (Duoneb 3.0-0.5 Mg/3 Ml) 3 ml NEB ONETIME ONE Stop: 03/22/19 17:36 Last Admin: 03/22/19 19:05 Dose: 3 ml Clonazepam (Klonopin) 0.5 mg PO BID [facility] Last Admin: 03/23/19 08:38 Dose: 0.5 mg Cyclobenzaprine HCl (Flexeril) 5 mg PO TID KERA Dexamethasone (Dexamethasone) 10 mg IVPUSH ONETIME ONE Stop: 03/22/19 17:36 Last Admin: 03/22/19 19:05 Dose: 10 mg Methylprednisolone Sodium Succinate (Solu-Medrol) 60 mg IVPUSH Q6H [facility]ERA Last Admin: 03/23/19 05:18 Dose: 60 mg Methylprednisolone Sodium Succinate (Solu-Medrol) 60 mg IVPUSH Q6H KERA Oseltamivir Phosphate (Tamiflu) 75 mg PO ONETIME ONE Stop: 03/22/19 19:22 Last Admin: 03/22/19 19:49 Dose: 75 mg Trazodone HCl (Trazodone) 50 mg PO BEDTIME PRN PRN Reason: Insomnia Last Admin: 03/22/19 23:11 Dose: 50 mg - Exam General: Alert, Oriented, Cooperative Lungs: Wheezing (Mild expiratory) Cardiovascular: Regular Rate, Regular Rhythm, No Murmurs Extremities: No Pedal Edema Sepsis Event Note - Evaluation Sepsis Screening Result: No Definite Risk - Focused Exam Vital Signs: Vital Signs Temp Pulse Resp BP Pulse Ox Pulse Ox 03/24/19 07:09 138/72 03/24/19 03:00 95 03/23/19 23:51 97.9 F 104 H 17 181/88 H 95 03/23/19 21:30 94 L Date Exam was Performed: 03/24/19 Time Exam was Performed: 07:32 - Problem List & Annotations (1) Palliative care status SNOMED Code(s): 645589864 Code(s): Z51.5 - ENCOUNTER FOR PALLIATIVE CARE Status: Acute Current Visit: Yes (2) COPD exacerbation SNOMED Code(s): 847224566 Code(s): J44.1 - CHRONIC OBSTRUCTIVE PULMONARY DISEASE W (ACUTE) EXACERBATION Status: Acute Current Visit: Yes (3) Influenza A SNOMED Code(s): 637791007 Code(s): J10.1 - FLU DUE TO OTH IDENT INFLUENZA VIRUS W OTH RESP MANIFEST Status: Acute Current Visit: Yes - Problem List Review Problem List Initiated/Reviewed/Updated: Yes - My Orders Last 24 Hours: My Active Orders 03/23/19 08:40 Temazepam [Restoril] 15 mg PO BEDTIME PRN 03/23/19 09:15 Enoxaparin [Lovenox] 40 mg SUBCUT Q24H 03/23/19 09:30 predniSONE 60 mg PO DAILY 03/23/19 10:00 Rosuvastatin [Crestor] 10 mg PO DAILY 03/23/19 13:54 Magnesium Hydroxide [Milk of Magnesia] 30 ml PO DAILY PRN 03/23/19 14:21 Naproxen [Naprosyn] 500 mg PO Q12H PRN - Plan Plan:: 1. Discharge to home on her current medications with Tamiflu and prednisone for 1 week.
--- NOTE | 2019-03-24 07:41 | PCM.DCSUM1 ---
Discharge Summary - Hospital Course Free Text/Narrative:: Hospital course-patient was admitted place on Tamiflu and steroids with nebulizer treatments. X-ray did not show pneumonia and influenza was positive for influenza A. She did have exposure with one of her grandchildren. By the next day she was already breathing well and coughing was going down. Her fever and chills are gone. In by day 2 she was back to her norm. She was having some wheezing oxygen was 95% 2 L. She is on 2 L at home for emphysema. Patient's potassium slightly low when she came in but and was corrected. White count was normal. We'll discharge her home with home health. Brief History: This is a 64 year-old oxygen dependent patient with COPD. He states 5 days ago she was exposed to her grandchildren that had influenza. She did not get a flu shot this year. She had a cough for the first 3 days, fevers, chills, body aches. Most that got better except for the cough and then she became very short of breath. She came to the ER and then was admitted. Diagnosis: Stroke: No - Discharge Data Discharge Date: 03/24/19 Discharge Disposition: Home, W Home Health Agency 06 Condition: Good - Referral to Home Health Date of Face to Face Encounter: 03/24/19 Reason for Homebound Status: Influenza A, oxygen dependent COPD, weakness Primary Care Physician: Jorge A Ortiz MD Skilled Need: Monitor oxygenation, home safety, medication management - Discharge Diagnosis/Problem(s) (1) Palliative care status SNOMED Code(s): 666931159 ICD Code: Z51.5 - ENCOUNTER FOR PALLIATIVE CARE Status: Acute Current Visit: Yes (2) COPD exacerbation SNOMED Code(s): 714757848 ICD Code: J44.1 - CHRONIC OBSTRUCTIVE PULMONARY DISEASE W (ACUTE) EXACERBATION Status: Acute Current Visit: Yes (3) Influenza A SNOMED Code(s): 204976590 ICD Code: J10.1 - FLU DUE TO OTH IDENT INFLUENZA VIRUS W OTH RESP MANIFEST Status: Acute Current Visit: Yes - Patient Instructions Diet: Regular Diet as Tolerated Activity: As Tolerated Driving: Do Not Drive Showering/Bathing: May Shower Other/Special Instructions: 1. Recheck with Dr. Blancas in 1 week. 2. [facility] health. 3. Oxygen 2 L NC - Discharge Plan *PRESCRIPTION DRUG MONITORING PROGRAM REVIEWED*: No *COPY OF PRESCRIPTION DRUG MONITORING REPORT IN PATIENT ALBIN: Not Applicable Prescriptions/Med Rec: Oseltamivir [Tamiflu] 75 mg PO BID #8 cap predniSONE 40 mg PO DAILY #14 tablet Home Medications: Home Meds ClonazePAM [KlonoPIN] 0.5 mg PO BID PRN 08/01/16 [History] rOPINIRole [Requip] 0.5 - 1 mg PO BEDTIME PRN 08/01/16 [History] Albuterol [Ventolin HFA] 1 - 2 puff IH Q4H PRN 08/30/16 [History] Cyclobenzaprine [Flexeril] 5 mg PO TID PRN 08/30/16 [History] Albuterol/Ipratropium [DuoNeb 3.0-0.5 MG/3 ML] 3 ml IH TID 03/23/19 [History] Fluticasone/Umeclidin/Vilanter [Trelegy Ellipta 100-62.5-25] 1 inh INH DAILY [History] Pantoprazole Sodium [Protonix] 40 mg PO BEDTIME 03/23/19 [History] Temazepam 15 mg PO BEDTIME PRN 03/23/19 [History] Oseltamivir [Tamiflu] 75 mg PO BID #8 cap 03/24/19 [Rx] Rosuvastatin [Crestor] 10 mg PO DAILY tablet 03/24/19 [Rx] predniSONE 40 mg PO DAILY #14 tablet 03/24/19 [Rx] Patient Handouts: Chronic Obstructive Pulmonary Disease Exacerbation, Easy-to- Read, Influenza, Adult, [id number], Fall Prevention in Hospitals, Adult, Deep Vein Thrombosis Forms: ED Department Discharge Referrals: Jorge A Ortiz MD [Primary Care Provider] - - Discharge Summary/Plan Comment DC Time >30 min.: No - Patient Data Vitals - Most Recent: Last Vital Signs Temp 97.9 F 03/23/19 23:51 Pulse 104 H 03/23/19 23:51 Resp 17 03/23/19 23:51 BP 138/72 03/24/19 07:09 Pulse Ox 95 03/24/19 03:00 Weight - Most Recent: 141 lb 14.4 oz I&O - Last 24 hours: Intake & Output 01/03/24/19 03/24/19 22:59 06:59 14:59 Intake Total 225 Output Total 550 Balance -325 Lab Results - Last 24 hrs: Laboratory Results - last 24 hr 03/23/19 Range/Units 06:35 Sodium 138 (135-145) mmol/L Potassium 4.5 D (3.5-5.3) mmol/L Chloride 98 L (100-110) mmol/L Carbon Dioxide 34 H (21-32) mmol/L BUN 13 (7-18) mg/dL Creatinine 0.8 (0.55-1.02) mg/dL Est Cr Clr Drug Dosing 51.70 mL/min Estimated GFR (MDRD) > 60 (>60) BUN/Creatinine Ratio 16.3 (9-20) Glucose 208 H (80-116) mg/dL Calcium 8.8 (8.6-10.2) mg/dL JUSTIN Results - Last 24 hrs: Microbiology 03/22/19 17:50 Aerobic Blood Culture - Preliminary Blood - Venous - Lab Draw NO GROWTH AFTER 1 DAY Anaerobic Blood Culture - Preliminary NO GROWTH AFTER 1 DAY 03/22/19 17:40 Aerobic Blood Culture - Preliminary Blood - Venous NO GROWTH AFTER 1 DAY Anaerobic Blood Culture - Preliminary NO GROWTH AFTER 1 DAY Med Orders - Current: Current Medications Albuterol (Proventil Neb Soln) 2.5 mg NEB Q2H PRN PRN Reason: Shortness Of Breath/wheezing Albuterol/Ipratropium (Duoneb 3.0-0.5 Mg/3 Ml) 3 ml INH QIDRT [facility] Last Admin: 03/24/19 06:01 Dose: 3 ml Clonazepam (Klonopin) 0.5 mg PO BID PRN PRN Reason: ANXIETY Last Admin: 03/23/19 23:24 Dose: 0.5 mg Cyclobenzaprine HCl (Flexeril) 5 mg PO TID PRN PRN Reason: MUSCLE SPASMS Last Admin: 03/23/19 14:10 Dose: 5 mg Enoxaparin Sodium (Lovenox) 40 mg SUBCUT Q24H [facility] Last Admin: 03/23/19 10:22 Dose: 40 mg Magnesium Hydroxide (Milk Of Magnesia) 30 ml PO DAILY PRN PRN Reason: Constipation Last Admin: 03/23/19 14:03 Dose: 30 ml Naproxen (Naprosyn) 500 mg PO Q12H PRN PRN Reason: Pain Last Admin: 03/23/19 14:27 Dose: 500 mg Oseltamivir Phosphate (Tamiflu) 75 mg PO BID [facility] Stop: 03/28/19 09:01 Last Admin: 03/23/19 20:03 Dose: 75 mg Pantoprazole Sodium (Protonix) 40 mg PO BEDTIME [facility] Last Admin: 03/23/19 20:03 Dose: 40 mg Prednisone (Prednisone) 60 mg PO DAILY [facility] Last Admin: 03/23/19 10:22 Dose: 60 mg Ropinirole HCl (Requip) 0.5 mg PO BEDTIME PRN PRN Reason: RLS Rosuvastatin Calcium (Crestor) 10 mg PO DAILY [facility] Last Admin: 03/23/19 10:22 Dose: 10 mg Sodium Chloride (Saline Flush) 10 ml FLUSH ASDIRECTED PRN PRN Reason: Keep Vein Open Last Admin: 03/23/19 05:19 Dose: 10 ml Temazepam (Restoril) 15 mg PO BEDTIME PRN PRN Reason: SLEEP Last Admin: 03/23/19 23:08 Dose: 15 mg Discontinued Medications Albuterol/Ipratropium (Duoneb 3.0-0.5 Mg/3 Ml) 3 ml NEB ONETIME ONE Stop: 03/22/19 17:36 Last Admin: 03/22/19 19:05 Dose: 3 ml Clonazepam (Klonopin) 0.5 mg PO BID [facility] Last Admin: 03/23/19 08:38 Dose: 0.5 mg Cyclobenzaprine HCl (Flexeril) 5 mg PO TID [facility] Dexamethasone (Dexamethasone) 10 mg IVPUSH ONETIME ONE Stop: 03/22/19 17:36 Last Admin: 03/22/19 19:05 Dose: 10 mg Methylprednisolone Sodium Succinate (Solu-Medrol) 60 mg IVPUSH Q6H [facility] Last Admin: 03/23/19 05:18 Dose: 60 mg Methylprednisolone Sodium Succinate (Solu-Medrol) 60 mg IVPUSH Q6H [facility] Oseltamivir Phosphate (Tamiflu) 75 mg PO ONETIME ONE Stop: 03/22/19 19:22 Last Admin: 03/22/19 19:49 Dose: 75 mg Trazodone HCl (Trazodone) 50 mg PO BEDTIME PRN PRN Reason: Insomnia Last Admin: 03/22/19 23:11 Dose: 50 mg
[2019-03-24] MEDS: ClonazePAM 0.5 MG Tab PO PRN (08:17)
[2019-03-24] MEDS: predniSONE 20 MG Tab PO SCH (08:18)
[2019-03-24] MEDS: Oseltamivir 75 MG Cap PO SCH (08:18)
[2019-03-24] MEDS: Enoxaparin 40 MG/0.4 ML Syringe SUBCUT SCH (08:19)
[2019-03-24] MEDS: Rosuvastatin 10 MG Tab PO SCH (08:19)
[2019-03-24 10:36] VITALS: BP 120/76; PULSE 91
== END 2019-03-24 09:35 | disposition home health service (06) | DRG 195 ==
LOC: FB.ED 17:11 → FB.MS 21:15
PROVIDERS: ADMIT Emergency Medicine; ATTEND Family Medicine
DX: J10.1 Influenza due to other identified influenza virus with other respiratory manifestations (principal); J09.X2 Influenza due to identified novel influenza A virus with other respiratory manifestations; J43.9 Emphysema, unspecified; Z51.5 Encounter for palliative care; F41.9 Anxiety disorder, unspecified; F31.9 Bipolar disorder, unspecified; F32.9 Major depressive disorder, single episode, unspecified; I10 Essential (primary) hypertension; Z88.6 Allergy status to analgesic agent; D64.9 Anemia, unspecified; G25.81 Restless legs syndrome; K21.9 Gastro-esophageal reflux disease without esophagitis; Z90.49 Acquired absence of other specified parts of digestive tract; Z88.5 Allergy status to narcotic agent; Z88.8 Allergy status to other drugs, medicaments and biological substances; Z79.899 Other long term (current) drug therapy; Z90.710 Acquired absence of both cervix and uterus; Z87.891 Personal history of nicotine dependence; Z99.81 Dependence on supplemental oxygen
CPT/HCPCS: 36415; 71045; 80053; 82803; 83605; 84484; 85025; 85379; 85610; 85730; 87040 ×2; 87804 ×2; 93005; 94640; A9270; J1100; 80048; 93010; 96374; 99284; 99285-25; J1650; J2920; J7620-GY

== ENCOUNTER 2019-07-06 15:55 | Emergency (ER) | payer MEDICAID, MEDICARE ==
--- NOTE | 2019-07-06 17:42 | EDM.PDOC ---
ED HPI GENERAL MEDICAL PROBLEM - General Chief Complaint: General Stated Complaint: EDEMA BOTH LEGS Time Seen by Provider: 07/06/19 16:55 Source of Information: Reports: Patient, Family History Limitations: Reports: No Limitations - History of Present Illness INITIAL COMMENTS - FREE TEXT/NARRATIVE: c/o swelling in LEs x 3d pt reports that her weight is down in the past month 12 lbs, yet is up by 10 lbs from yesterday to today when at Dr Blancas's office saw Dr Blancas this AM, who ordered an echocardiogram for LE edema (scheduled in one week), no labs daughter lives 2 miles away and concerned d/t difficulty swallowing x 2w, pt reports that she trouble getting a pill down 2w ago and has not been able to swallow her pills, pt says "I think it is all in my head" pt in [facility] for 2d last week because pt was forgetting how to drink water, forgetting how to light a cigarette head CT last week reported neg, pt d/c'ed on 2 new meds: paroxetine 40 mg/d and lamotrigine 25 mg/d pt also give a new Rx for furosemide 40 mg/d from Dr Blancas for LE edema daughter states her mother was in manic state last week when admitted to [place] on [facility], not a psych admission did have a phone visit with a new psychiatrist from [facility] today with the first name of Izzy also works with Dr Arevalo psychiatrist here in town at the [facility] pt stopped drinking alc 17m ago, yet took a cab to the alcohol store and bough 1 /2 galloon of tequila 2d ago, dtr does not know if she has had it to drink or not does some THC which dtr recently removed from the house, has also gotten CBD from a cousin who runs a lab and tests CBD pt tried to spent $875 at [employer] for "random things" but did not have the money in her bank account pt has been taking her pills irratically did state she took a new furosemide 40 mg today, voided x 2 when 1st arrived at ED dtr counted her Lamictal from last week and states pt has taken 2x as many pills as she should pt has 3 full bottles of ropinirole bilateral feet Pain Score (Numeric/FACES): 10 - Related Data Allergies Allergy/AdvReac Type Severity Reaction Status Date / Time acetaminophen [From Percocet] Allergy Rash Verified 07/06/19 17:16 carbamazepine [From Tegretol] Allergy Confusion Verified 07/06/19 17:16 codeine Allergy Cannot Verified 07/06/19 17:16 Remember meperidine [From Demerol] Allergy Rash Verified 07/06/19 17:16 morphine Allergy Rash Verified 07/06/19 17:16 oxycodone [From Percocet] Allergy Rash Verified 07/06/19 17:16 Home Meds: Home Meds ClonazePAM [KlonoPIN] 0.5 mg PO BID PRN 08/01/16 [History] rOPINIRole [Requip] 0.5 - 1 mg PO BEDTIME PRN 08/01/16 [History] Albuterol [Ventolin HFA] 1 - 2 puff IH Q4H PRN 08/30/16 [History] Cyclobenzaprine [Flexeril] 5 mg PO TID PRN 08/30/16 [History] Albuterol/Ipratropium [DuoNeb 3.0-0.5 MG/3 ML] 3 ml IH TID 03/23/19 [History] Fluticasone/Umeclidin/Vilanter [Trelegy Ellipta 100-62.5-25] 1 inh INH DAILY [History] Pantoprazole Sodium [Protonix] 40 mg PO BEDTIME 03/23/19 [History] Temazepam 15 mg PO BEDTIME PRN 03/23/19 [History] Oseltamivir [Tamiflu] 75 mg PO BID #8 cap 03/24/19 [Rx] Rosuvastatin [Crestor] 10 mg PO DAILY tablet 03/24/19 [Rx] predniSONE 40 mg PO DAILY #14 tablet 03/24/19 [Rx] Amoxicillin/Clavulanate K [Augmentin 875-125 MG] 1 tab PO BID #14 tablet [Rx] Potassium Chloride 20 meq PO DAILY #30 tablet.er 07/06/19 [Rx] Past Medical History HEENT History: Reports: Allergic Rhinitis Cardiovascular History: Reports: Hypertension Respiratory History: Reports: COPD, Other (See Below) Other Respiratory History: PULMONARY EMPHYSEMA; LUNG NODULE Gastrointestinal History: Reports: GERD HOSPITAL UNIT CLERK History: Reports: Other HOSPITAL UNIT CLERK History: x2, hyst Musculoskeletal History: Reports: None Neurological History: Reports: Other (See Below) Other Neuro History: RESTLESS LEG SYNDROME. INSOMNIA Psychiatric History: Reports: Addiction, Anxiety, Bipolar, Depression, Psych Hospitalization(s) Hematologic History: Reports: Anemia Immunologic History: Reports: None Oncologic (Cancer) History: Reports: None Dermatologic History: Reports: Cellulitis - Infectious Disease History Infectious Disease History: Reports: Chicken Pox, Measles, Mumps, Pertussis ( Whooping Cough), Scarlet Fever - Past Surgical History Head Surgeries/Procedures: Reports: None HEENT Surgical History: Reports: Tonsillectomy Cardiovascular Surgical History: Reports: None Respiratory Surgical History: Reports: None GI Surgical History: Reports: Appendectomy, Hernia, Abdominal Female Surgical History: Reports: Breast Reduction, Section, Hysterectomy Neurological Surgical History: Reports: None Social & Family History - Family History Family Medical History: Noncontributory Cardiac: Reports: CAD, Hypertension, SD - Caffeine Use Caffeine Use: Reports: Soda Other Caffeine Use: 5 a day ED ROS GENERAL - Review of Systems Review Of Systems: See Below Constitutional: Reports: No Symptoms HEENT: Reports: No Symptoms Respiratory: Reports: No Symptoms, Other (no change, chronic sob) Cardiovascular: Reports: Edema. Denies: Chest Pain Endocrine: Reports: No Symptoms GI/Abdominal: Reports: No Symptoms : Reports: No Symptoms Musculoskeletal: Reports: No Symptoms Skin: Reports: No Symptoms Neurological: Reports: No Symptoms Psychiatric: Reports: Mood Lability Hematologic/Lymphatic: Reports: No Symptoms Immunologic: Reports: No Symptoms ED EXAM, GENERAL - Physical Exam Exam: See Below Exam Limited By: No Limitations General Appearance: Alert, WD/WN, No Apparent Distress, Other (alert, conversant , nonill, recounts events of past week in good amount of detail) Ears: Hearing Grossly Normal Nose: Normal Inspection Throat/Mouth: Normal Inspection, Normal Lips, No Airway Compromise Head: Atraumatic, Normocephalic Neck: Normal Inspection, Supple, Non-Tender, Full Range of Motion Respiratory/Chest: Other (fair AE, insp/exp crackles) Cardiovascular: Regular Rate, Rhythm, Other (2/6 ISAIAH at LSB) GI/Abdominal: Normal Bowel Sounds, Soft, Non-Tender, No Distention Back Exam: Normal Inspection. No: CVA Tenderness (R), CVA Tenderness (L) Extremities: Other (3+ edema to knees b/l, shiny skin, superficial vasodilation , no warmth, does have tender to light palpation of feet and pretib areas b/l ( does not appear to be physiologic tenderness)) Neurological: Alert, No Motor/Sensory Deficits, Other (pharynx wnl, ate food and swallowed fluids in ED without difficulty) Psychiatric: Normal Mood Skin Exam: Warm, Dry, Intact, Normal Color, No Rash Lymphatic: No Adenopathy Course - Vital Signs Last Recorded V/S: Last Vital Signs Temp 36.7 C 07/06/19 16:10 Pulse 93 07/06/19 16:10 Resp 17 07/06/19 16:10 BP 133/66 07/06/19 16:10 Pulse Ox 95 07/06/19 16:10 - Orders/Labs/Meds Orders: Active Orders 24 hr Category Date Time Status EKG Documentation Completion [RC] ASDIRECTED Care 07/06/19 17:19 Active Amoxicillin/Clavulanate K [Augmentin 875 MG/125 MG] Med 07/06/19 19:00 Once 1 tab PO ONETIME ONE Potassium Chloride [Klor-Con M20] Med 07/06/19 18:59 Once 40 meq PO ONETIME ONE EKG 12 Lead [EK] Routine Ther 07/06/19 17:18 Ordered Labs: Laboratory Tests 07/06/19 07/06/19 07/06/19 Range/Units 17:28 17:28 17:28 WBC 8.7 (4.5-12.0) X10-3/uL RBC 4.32 (3.23-5.20) x10(6)uL Hgb 12.6 (11.5-15.5) g/dL Hct 39.1 (30.0-51.3) % MCV 90.6 (80-96) fL MCH 29.3 (27.7-33.6) pg MCHC 32.3 (32.2-35.4) g/dL RDW 14.8 (11.5-15.5) % Plt Count 276 (125-369) X10(3)uL MPV 7.6 (7.4-10.4) fL Neut % (Auto) 72.2 (46-82) % Lymph % (Auto) 15.2 (13-37) % [place] % (Auto) 9.5 (4-12) % Eos % (Auto) 2 (1.0-5.0) % Baso % (Auto) 1 (0-2) % Neut # (Auto) 6.3 (1.6-8.3) # Lymph # (Auto) 1.3 (0.6-5.0) # [place] # (Auto) 0.8 (0.0-1.3) # Eos # (Auto) 0.2 (0.0-0.8) # Baso # (Auto) 0.1 (0.0-0.2) # PT 10.8 (9.0-11.1) sec INR 1.00 (1.00-1.24) D-Dimer, Quantitative 0.55 (0.0-0.59) mg/LFEU Sodium 144 (135-145) mmol/L Potassium 3.1 L D (3.5-5.3) mmol/L Chloride 101 (100-110) mmol/L Carbon Dioxide 34 H (21-32) mmol/L BUN 10 (7-18) mg/dL Creatinine 1.0 (0.55-1.02) mg/dL Est Cr Clr Drug Dosing TNP Estimated GFR (MDRD) 56 L (>60) BUN/Creatinine Ratio 10.0 (9-20) Glucose 81 D (80-116) mg/dL Calcium 8.8 (8.6-10.2) mg/dL Total Bilirubin 0.6 (0.1-1.3) mg/dL AST 29 H D (5-25) IU/L ALT 39 H D (12-36) U/L Alkaline Phosphatase 87 (56-112) IU/L Troponin I (4.0-60.3) pg/mL C-Reactive Protein (0.5-0.9) mg/dL NT-Pro-B Natriuret Pep (<=125) pg/mL Total Protein 7.5 (6.0-8.0) g/dL Albumin 3.3 (3.2-4.6) g/dL Globulin 4.2 g/dL Albumin/Globulin Ratio 0.8 Urine Color (YELLOW) Urine Appearance (CLEAR) Urine pH (5.0-6.5) Ur Specific Adrian (1.010-1.025) Urine Protein (NEGATIVE) mg/dL Urine Glucose (UA) (NORMAL) mg/dL Urine Ketones (NEGATIVE) mg/dL Urine Occult Blood (NEGATIVE) Urine Nitrite (NEGATIVE) Urine Bilirubin (NEGATIVE) Urine Urobilinogen (NEGATIVE) mg/dL Ur Leukocyte Esterase (NEGATIVE) Urine RBC (0-5) Urine WBC (0-5) Ur Squamous Epith Cells (NS,R,O) Urine Bacteria (NS) Urine Opiates Screen (NEGATIVE) Ur Oxycodone Screen (NEGATIVE) Ur Propoxyphene Screen (NEGATIVE) Ur Barbituates Screen (NEGATIVE) Ur Tricyclics Screen (NEGATIVE) Ur Phencyclidine Scrn (NEGATIVE) Ur Amphetamine Screen (NEGATIVE) Urine MDMA Screen (NEGATIVE) U Benzodiazepines Scrn (NEGATIVE) U Cocaine Metab Screen (NEGATIVE) U Marijuana (THC) Screen (NEGATIVE) Ethyl Alcohol (<0.03) % 07/06/19 07/06/19 07/06/19 Range/Units 17:28 17:28 18:05 WBC (4.5-12.0) X10-3/uL RBC (3.23-5.20) x10(6)uL Hgb (11.5-15.5) g/dL Hct (30.0-51.3) % MCV (80-96) fL MCH (27.7-33.6) pg MCHC (32.2-35.4) g/dL RDW (11.5-15.5) % Plt Count (125-369) X10(3)uL MPV (7.4-10.4) fL Neut % (Auto) (46-82) % Lymph % (Auto) (13-37) % [place] % (Auto) (4-12) % Eos % (Auto) (1.0-5.0) % Baso % (Auto) (0-2) % Neut # (Auto) (1.6-8.3) # Lymph # (Auto) (0.6-5.0) # [place] # (Auto) (0.0-1.3) # Eos # (Auto) (0.0-0.8) # Baso # (Auto) (0.0-0.2) # PT (9.0-11.1) sec INR (1.00-1.24) D-Dimer, Quantitative (0.0-0.59) mg/LFEU Sodium (135-145) mmol/L Potassium (3.5-5.3) mmol/L Chloride (100-110) mmol/L Carbon Dioxide (21-32) mmol/L BUN (7-18) mg/dL Creatinine (0.55-1.02) mg/dL Est Cr Clr Drug Dosing Estimated GFR (MDRD) (>60) BUN/Creatinine Ratio (9-20) Glucose (80-116) mg/dL Calcium (8.6-10.2) mg/dL Total Bilirubin (0.1-1.3) mg/dL AST (5-25) IU/L ALT (12-36) U/L Alkaline Phosphatase (56-112) IU/L Troponin I 11.6 (4.0-60.3) pg/mL C-Reactive Protein 2.6 H* (0.5-0.9) mg/dL NT-Pro-B Natriuret Pep 324 H (<=125) pg/mL Total Protein (6.0-8.0) g/dL Albumin (3.2-4.6) g/dL Globulin g/dL Albumin/Globulin Ratio Urine Color Yellow (YELLOW) Urine Appearance Clear (CLEAR) Urine pH 7.0 H (5.0-6.5) Ur Specific Adrian 1.010 (1.010-1.025) Urine Protein Negative (NEGATIVE) mg/dL Urine Glucose (UA) Normal (NORMAL) mg/dL Urine Ketones Negative (NEGATIVE) mg/dL Urine Occult Blood Negative (NEGATIVE) Urine Nitrite Negative (NEGATIVE) Urine Bilirubin Negative (NEGATIVE) Urine Urobilinogen Normal (NEGATIVE) mg/dL Ur Leukocyte Esterase Negative (NEGATIVE) Urine RBC 0-5 (0-5) Urine WBC 0-5 (0-5) Ur Squamous Epith Cells Few H (NS,R,O) Urine Bacteria Rare H (NS) Urine Opiates Screen (NEGATIVE) Ur Oxycodone Screen (NEGATIVE) Ur Propoxyphene Screen (NEGATIVE) Ur Barbituates Screen (NEGATIVE) Ur Tricyclics Screen (NEGATIVE) Ur Phencyclidine Scrn (NEGATIVE) Ur Amphetamine Screen (NEGATIVE) Urine MDMA Screen (NEGATIVE) U Benzodiazepines Scrn (NEGATIVE) U Cocaine Metab Screen (NEGATIVE) U Marijuana (THC) Screen (NEGATIVE) Ethyl Alcohol < 0.03 (<0.03) % 07/06/19 Range/Units 18:05 WBC (4.5-12.0) X10-3/uL RBC (3.23-5.20) x10(6)uL Hgb (11.5-15.5) g/dL Hct (30.0-51.3) % MCV (80-96) fL MCH (27.7-33.6) pg MCHC (32.2-35.4) g/dL RDW (11.5-15.5) % Plt Count (125-369) X10(3)uL MPV (7.4-10.4) fL Neut % (Auto) (46-82) % Lymph % (Auto) (13-37) % [place] % (Auto) (4-12) % Eos % (Auto) (1.0-5.0) % Baso % (Auto) (0-2) % Neut # (Auto) (1.6-8.3) # Lymph # (Auto) (0.6-5.0) # [place] # (Auto) (0.0-1.3) # Eos # (Auto) (0.0-0.8) # Baso # (Auto) (0.0-0.2) # PT (9.0-11.1) sec INR (1.00-1.24) D-Dimer, Quantitative (0.0-0.59) mg/LFEU Sodium (135-145) mmol/L Potassium (3.5-5.3) mmol/L Chloride (100-110) mmol/L Carbon Dioxide (21-32) mmol/L BUN (7-18) mg/dL Creatinine (0.55-1.02) mg/dL Est Cr Clr Drug Dosing Estimated GFR (MDRD) (>60) BUN/Creatinine Ratio (9-20) Glucose (80-116) mg/dL Calcium (8.6-10.2) mg/dL Total Bilirubin (0.1-1.3) mg/dL AST (5-25) IU/L ALT (12-36) U/L Alkaline Phosphatase (56-112) IU/L Troponin I (4.0-60.3) pg/mL C-Reactive Protein (0.5-0.9) mg/dL NT-Pro-B Natriuret Pep (<=125) pg/mL Total Protein (6.0-8.0) g/dL Albumin (3.2-4.6) g/dL Globulin g/dL Albumin/Globulin Ratio Urine Color (YELLOW) Urine Appearance (CLEAR) Urine pH (5.0-6.5) Ur Specific [place] (1.010-1.025) Urine Protein (NEGATIVE) mg/dL Urine Glucose (UA) (NORMAL) mg/dL Urine Ketones (NEGATIVE) mg/dL Urine Occult Blood (NEGATIVE) Urine Nitrite (NEGATIVE) Urine Bilirubin (NEGATIVE) Urine Urobilinogen (NEGATIVE) mg/dL Ur Leukocyte Esterase (NEGATIVE) Urine RBC (0-5) Urine WBC (0-5) Ur Squamous Epith Cells (NS,R,O) Urine Bacteria (NS) Urine Opiates Screen Negative (NEGATIVE) Ur Oxycodone Screen Negative (NEGATIVE) Ur Propoxyphene Screen Negative (NEGATIVE) Ur Barbituates Screen Negative (NEGATIVE) Ur Tricyclics Screen Positive H (NEGATIVE) Ur Phencyclidine Scrn Negative (NEGATIVE) Ur Amphetamine Screen Negative (NEGATIVE) Urine MDMA Screen Negative (NEGATIVE) U Benzodiazepines Scrn Positive H (NEGATIVE) U Cocaine Metab Screen Negative (NEGATIVE) U Marijuana (THC) Screen Negative (NEGATIVE) Ethyl Alcohol (<0.03) % - Re-Assessments/Exams Free Text/Narrative Re-Assessment/Exam: 07/06/19 19:12 pt said her feet are warm, there is some redness and perhaps some warmth dorsally, skin is certainly dry, no breaks in the skin, as cellulitis cannot be excluded (CRP is in'cd at 2.6--altho no fever, no wbc, no left shift) will tx empirically with Augmentin BNP is inc'd c/w mild HF, echo pending low K 3.1, will replace and then continue daily as pt on furosemide issues d/w pt and with dtr Dr Blancas and voicemail left to give him an update pt does not need a swallow study, took food and liquids well, has a phobia x 2 wks regarding swallowing pills has had some cognitive issues at home, conversant here without signs or sxs of chandra, cooperative, pleasant Departure - Departure Time of Disposition: 19:00 Disposition: Home, Self-Care 01 Condition: Good Clinical Impression: Bilateral lower extremity edema, Heart failure, Skin redness or inflammation, Elevated C-reactive protein (CRP), Cellulitis, Hypokalemia, Elevated brain natriuretic peptide (BNP) level - Discharge Information *PRESCRIPTION DRUG MONITORING PROGRAM REVIEWED*: Not Applicable *COPY OF PRESCRIPTION DRUG MONITORING REPORT IN PATIENT ALBIN: Not Applicable Prescriptions: Amoxicillin/Clavulanate K [Augmentin 875-125 MG] 1 tab PO BID #14 tablet Potassium Chloride 20 meq PO DAILY #30 tablet.er Instructions: Heart Failure, Hypokalemia, Cellulitis, Adult Referrals: Jorge A Ortiz MD [Primary Care Provider] - Forms: ED Department Discharge Additional Instructions: For possible infection in the skin on the top of your feet, take the antibiotic amoxicillin/clavulanate 875/125 mg 1 tab 2 times a day for 7 days. To help the heart and remove fluid from your feet, continue with the furosemide 40 mg [address] Blancas prescribed. To replace your potassium, take potassium 20 meq 1 tab 2 times a day for 3 days , then 1 tab daily. Do the echocardiogram in one week as scheduled by Dr Blancas. Avoid soap on the feet (as the skin is very dry). May use a moisturizer on your feet 2 times a day. Continue your regular meds. Have your daughter (or a home health nurse) set up your pills ahead of time and monitor the usage. See Dr Blancas after your echocardiogram for further instructions. Return to ED if you are feeling worse. Sepsis Event Note - Evaluation Sepsis Screening Result: No Definite Risk - Focused Exam Vital Signs: Vital Signs Temp Pulse Resp BP Pulse Ox 07/06/19 16:10 36.7 C 93 17 133/66 95 Date Exam was Performed: 07/06/19 Time Exam was Performed: 19:00 - My Orders Last 24 Hours: My Active Orders 07/06/19 17:18 EKG 12 Lead [EK] Routine 07/06/19 17:19 EKG Documentation Completion [RC] ASDIRECTED 07/06/19 18:59 Potassium Chloride [Klor-Con M20] 40 meq PO ONETIME ONE 07/06/19 19:00 Amoxicillin/Clavulanate K [Augmentin 875 MG/125 MG] 1 tab PO ONETIME ONE - Assessment/Plan Last 24 Hours: My Active Orders 07/06/19 17:18 EKG 12 Lead [EK] Routine 07/06/19 17:19 EKG Documentation Completion [RC] ASDIRECTED 07/06/19 18:59 Potassium Chloride [Klor-Con M20] 40 meq PO ONETIME ONE 07/06/19 19:00 Amoxicillin/Clavulanate K [Augmentin 875 MG/125 MG] 1 tab PO ONETIME ONE
--- NOTE | 2019-07-06 18:05 | CR ---
INDICATION: Confusion. Leg edema. CHEST, TWO VIEWS: PA and lateral views of the chest with 2 PA views were obtained 07/06/19 and compared with 03/22/19 and 08/27/16 again revealing the heart to be normal in size transversely, but with suggestion of left ventricular enlargement on the lateral view. Aorta is calcified in the arch in descending portion. Findings compatible with COPD are noted. There is some increased density at the left lung base which could represent a minimal area of pneumonia or possibly an epicardial fat pad. No definite consolidating pneumonia or effusion was seen. IMPRESSION: 1. No definite acute process, but cannot exclude a minimal area of pneumonia versus epicardial fat pad in the lingula area. 2. COPD which appears slightly progressive compared with 2017. 3. ASHD with LVE. MTDD
[2019-07-06] MEDS ORDERED: Potassium Chloride 20 MEQ Tab.ER PO ONE (18:59)
[2019-07-06] MEDS ORDERED: Amoxicillin/Clavulanate K 875-125 MG Tab PO ONE (19:00)
[2019-07-06] MEDS ORDERED: Amoxicillin/Clavulanate K 875-125 MG Tab ONE (19:24)
[2019-07-06 19:55] VITALS: BP 135/55; PULSE 101
== END 2019-07-06 19:50 | disposition home or self-care (01) ==
LOC: FB.ED 15:55
DX: L03.116 Cellulitis of left lower limb (principal); L03.115 Cellulitis of right lower limb; I11.0 Hypertensive heart disease with heart failure; I50.9 Heart failure, unspecified; E87.6 Hypokalemia; R79.82 Elevated C-reactive protein (CRP); R79.89 Other specified abnormal findings of blood chemistry; J44.9 Chronic obstructive pulmonary disease, unspecified; F41.9 Anxiety disorder, unspecified; F31.9 Bipolar disorder, unspecified; K21.9 Gastro-esophageal reflux disease without esophagitis; Z88.6 Allergy status to analgesic agent; Z88.5 Allergy status to narcotic agent; Z88.8 Allergy status to other drugs, medicaments and biological substances; Z79.899 Other long term (current) drug therapy
CPT/HCPCS: 36415; 71046; 80053; 80305; 80307; 81001; 83880; 84484; 85025; 85379; 85610; 86140; 93005; 99284; A9270

== ENCOUNTER 2021-04-11 19:15 | Emergency (ER) | payer MEDICARE, MEDICAID ==
[2021-04-11] MEDS ORDERED: Cyclobenzaprine 10 MG Tab PO ONE (19:16)
[2021-04-11 19:29] VITALS: BP 116/68; PULSE 105
[2021-04-11] MEDS ORDERED: predniSONE 20 MG Tab PO ONE (20:05)
== END 2021-04-11 20:50 | disposition home or self-care (01) ==
LOC: FB.ED 19:15
DX: M62.830 Muscle spasm of back (principal); I10 Essential (primary) hypertension; J43.9 Emphysema, unspecified; K21.9 Gastro-esophageal reflux disease without esophagitis; Z87.891 Personal history of nicotine dependence; Z88.6 Allergy status to analgesic agent; Z88.8 Allergy status to other drugs, medicaments and biological substances; Z88.5 Allergy status to narcotic agent; Z79.899 Other long term (current) drug therapy
CPT/HCPCS: 96372; 99284; A9270; J3360; J7512

== ENCOUNTER 2021-08-25 13:13 | Observation (INO) | payer MEDICARE, MEDICAID ==
[2021-08-25] MEDS ORDERED: LORazepam 2 MG/ML SDV IVPUSH ONE (13:21)
[2021-08-25] MEDS ORDERED: Sodium Chloride 0.9% 10 ML Syringe FLUSH PRN (13:28)
[2021-08-25 14:43] LABS: ESTIMATED GFR 96 mL/min (>60)
[2021-08-25] MEDS ORDERED: Potassium Chloride 20 MEQ Tab.ER PO ONE (15:36)
[2021-08-25] MEDS ORDERED: Potassium Chloride 20 MEQ Packet PO SCH (15:45)
[2021-08-25] MEDS ORDERED: Ondansetron 4 MG Tab.DIS PO ONE (16:34)
[2021-08-25] MEDS ORDERED: Acetaminophen 500 MG Tab PO ONE (16:36)
[2021-08-25] MEDS ORDERED: Albuterol/Ipratropium 3.0-0.5 MG/3 ML Neb Soln NEB ONE (16:37)
[2021-08-25] MEDS ORDERED: Magnesium Sulfate/Water 2 GM in Premix Bag 1 BAG IV ONE (16:43)
[2021-08-25] MEDS ORDERED: Ondansetron 4 MG Tab.DIS PO PRN (16:51)
[2021-08-25] MEDS ORDERED: Acetaminophen 325 MG Tab PO PRN (16:51)
[2021-08-25] MEDS ORDERED: Docusate Sodium 100 MG Cap PO PRN (16:51)
[2021-08-25] MEDS ORDERED: Non-Formulary Medication 1 Each (Ropinirole [Requip] 0.5 MG Tablet) PO PRN (17:35)
[2021-08-25] MEDS ORDERED: hydrOXYzine HCl 25 MG Tab PO PRN (17:35)
[2021-08-25] MEDS ORDERED: Non-Formulary Medication 1 Each (Cyclobenzaprine [Flexeril] 10 MG Tablet) PO PRN (17:35)
[2021-08-25] MEDS ORDERED: DOXEPIN HCL 10 MG PO PRN (17:35)
[2021-08-25] MEDS ORDERED: ALBUTEROL IH PRN (17:35)
[2021-08-25] MEDS ORDERED: LAMOTRIGINE 100 MG PO SCH ×2 (17:45→20:15)
[2021-08-25] MEDS: Potassium Chloride 20 MEQ Packet PO SCH (20:25)
[2021-08-25] MEDS: Albuterol/Ipratropium 3.0-0.5 MG/3 ML Neb Soln NEB SCH (20:29)
[2021-08-25] MEDS ORDERED: Non-Formulary Medication 1 Each (Pantoprazole Sodium [Protonix] 40 MG Tablet.Dr) PO SCH (21:00)
[2021-08-25] MEDS ORDERED: Pantoprazole 40 MG Tab.CR *PT OWN MED PO SCH (21:00)
[2021-08-26] MEDS: Albuterol/Ipratropium 3.0-0.5 MG/3 ML Neb Soln NEB SCH ×3 (06:38→20:43)
[2021-08-26 07:09] LABS: ESTIMATED GFR 96 mL/min (>60)
[2021-08-26] MEDS ORDERED: HYDROXYZINE PAMOATE 25 MG PO PRN (08:22)
[2021-08-26] MEDS ORDERED: Albuterol 8 GM Inhaler *PTOM INH PRN (08:29)
[2021-08-26] MEDS ORDERED: DOXEPIN 25 MG PO PRN (09:00)
[2021-08-26] MEDS ORDERED: Cyclobenzaprine 10 MG Tab *PTOM PO PRN (09:00)
[2021-08-26] MEDS ORDERED: LAMOTRIGINE 100 MG PO SCH (09:00)
[2021-08-26] MEDS ORDERED: Non-Formulary Medication 1 Each (Metoprolol Succinate [Toprol Xl 50mg] 50 MG Tab.Er) PO SCH (09:00)
[2021-08-26] MEDS: Fluticasone/Umeclidin/Vilanter [Trelegy Ellipta 100-62.5- INH SCH (09:51)
[2021-08-26] MEDS: ROFLUMILAST 500 MCG PO SCH (09:52)
[2021-08-26] MEDS: Escitalopram 10 MG Tab *PTOM PO SCH (09:52)
[2021-08-26] MEDS: Metoprolol Succinate 50 MG Tab.ER *PTOM PO SCH (09:53)
[2021-08-26] MEDS: Potassium Chloride 20 MEQ Packet PO SCH ×2 (09:58→20:43)
[2021-08-26] MEDS ORDERED: acetaZOLAMIDE 250 MG Tab PO ONE (10:46)
[2021-08-26] MEDS ORDERED: Baclofen 10 MG Tab PO PRN (10:48)
[2021-08-26] MEDS: Enoxaparin 40 MG/0.4 ML Syringe SUBCUT SCH (11:35)
[2021-08-26] MEDS: ALPRAZolam 0.5 MG Tab PO PRN (20:44)
[2021-08-26] MEDS ORDERED: Pantoprazole 40 MG Tab.CR *PT OWN MED PO SCH (21:00)
[2021-08-26] MEDS ORDERED: rOPINIRole 0.5 MG Tab *PTOM PO SCH (21:00)
[2021-08-27] MEDS: Albuterol/Ipratropium 3.0-0.5 MG/3 ML Neb Soln NEB SCH ×2 (06:20→13:06)
[2021-08-27 06:31] LABS: ESTIMATED GFR 96 mL/min (>60)
[2021-08-27] MEDS ORDERED: lamoTRIgine 100 MG Tab *PTOM PO SCH (09:00)
[2021-08-27] MEDS: Fluticasone/Umeclidin/Vilanter [Trelegy Ellipta 100-62.5- INH SCH (09:07)
[2021-08-27] MEDS: Escitalopram 10 MG Tab *PTOM PO SCH (09:08)
[2021-08-27] MEDS: Potassium Chloride 20 MEQ Packet PO SCH (09:08)
[2021-08-27] MEDS: Enoxaparin 40 MG/0.4 ML Syringe SUBCUT SCH (09:09)
[2021-08-27] MEDS: ALPRAZolam 0.5 MG Tab PO PRN (09:09)
[2021-08-27] MEDS: Metoprolol Succinate 50 MG Tab.ER *PTOM PO SCH (09:09)
[2021-08-27] MEDS: ROFLUMILAST 500 MCG PO SCH (09:10)
[2021-08-27 09:12] VITALS: BP 141/68; PULSE 101
[2021-08-27 09:12] LABS: IRON BIND.CAP.(TIBC) 236 ug/dL (250-450); IRON SATURATION 22 % (15-55); IRON, SERUM 51 ug/dL (27-139); UIBC 185 ug/dL (118-369)
[2021-08-27] MEDS ORDERED: Cyproheptadine 4 MG Tab PO PRN (09:43)
[2021-08-28 15:12] LABS: HEMATOCRIT 35.3 % (34.0-46.6)
[2021-08-31 15:09] LABS: METHYLMALONIC ACID, SERUM 244 nmol/L (0-378)
== END 2021-08-27 13:50 | disposition home health service (06) ==
LOC: FB.ED 13:13 → FB.MS 16:51
PROVIDERS: ADMIT Family Medicine; ATTEND Family Medicine
DX: J44.9 Chronic obstructive pulmonary disease, unspecified (principal); G25.79 Other drug induced movement disorders; I10 Essential (primary) hypertension; F41.9 Anxiety disorder, unspecified; D64.9 Anemia, unspecified; E87.6 Hypokalemia; E83.42 Hypomagnesemia; M54.2 Cervicalgia; G89.29 Other chronic pain; R53.1 Weakness; R06.89 Other abnormalities of breathing; G25.81 Restless legs syndrome; F31.32 Bipolar disorder, current episode depressed, moderate; F10.21 Alcohol dependence, in remission; G47.09 Other insomnia; K21.00 Gastro-esophageal reflux disease with esophagitis, without bleeding; E66.9 Obesity, unspecified; Z88.6 Allergy status to analgesic agent; Z88.8 Allergy status to other drugs, medicaments and biological substances; Z88.5 Allergy status to narcotic agent; Z68.30 Body mass index [BMI] 30.0-30.9, adult; Z79.51 Long term (current) use of inhaled steroids; Z79.52 Long term (current) use of systemic steroids; Z87.891 Personal history of nicotine dependence
CPT/HCPCS: 36415; 70450; 80048; 81001; 82272; 82728; 82747; 83540; 83550; 83735; 83921; 84484; 85027; 85045; 85379; 93005; 93010; 94640; 96365; 96372; 96375; 99217; 99219; 99283; 99285-25; A9270-GY; G0378; J1650; J2060; J3475; J3490; J7620; Q0162

== ENCOUNTER 2021-12-14 16:34 | Inpatient (IN) | payer MEDICARE, MEDICAID ==
[2021-12-14] MEDS ORDERED: LORazepam 1 MG Tab PO ONE (16:50)
[2021-12-14] MEDS ORDERED: Albuterol/Ipratropium 3.0-0.5 MG/3 ML Neb Soln NEB ONE (16:55)
[2021-12-14 18:00] LABS: ESTIMATED GFR 82 mL/min (>60)
[2021-12-14] MEDS ORDERED: Sodium Chloride 0.9% 10 ML Syringe FLUSH PRN (18:05)
[2021-12-14] MEDS ORDERED: methylPREDNISolone Sodium Succinate 40 MG/1 ML SDV IVPUSH ONE (18:35)
[2021-12-14 20:21] LABS: PO2 ARTERIAL,POC 76 mmHg (83-108)
[2021-12-14] MEDS ORDERED: Verapamil 180 MG Tab.ER PO SCH (21:00)
[2021-12-14 22:34] VITALS: BP 143/77
[2021-12-14 22:35] VITALS: PULSE 106
[2021-12-15 11:03] LABS: CORONAVIRUS COVID-19 NAA NEGATIVE (NEGATIVE)
[2021-12-16 06:45] LABS: ESTIMATED GFR 82 mL/min (>60)
[2021-12-17 06:29] LABS: ESTIMATED GFR 46 mL/min (>60)
[2021-12-18 06:48] LABS: ESTIMATED GFR 36 mL/min (>60)
[2021-12-18] MEDS ORDERED: Docusate Sodium 100 MG Cap ONE ×2 (17:34→21:19)
[2021-12-19] MEDS ORDERED: Cyproheptadine 4 MG Tab ONE (04:45)
[2021-12-19 06:47] LABS: ESTIMATED GFR 42 mL/min (>60)
[2021-12-19] MEDS ORDERED: LORazepam 0.5 MG Tab ONE (06:47)
[2021-12-19] MEDS ORDERED: Polyethylene Glycol 3350 Powder 17 GM Packet ONE (10:04)
[2021-12-19] MEDS ORDERED: risperiDONE 0.5 MG Tab ONE (10:05)
[2021-12-19] MEDS ORDERED: Albuterol 0.083% 2.5 MG/3 ML Neb Soln ONE (12:13)
[2021-12-19] MEDS ORDERED: LORazepam 1 MG Tab ONE (15:43)
[2021-12-19] MEDS ORDERED: Nicotine 14 MG/24 Hr Patch ONE (16:16)
[2021-12-19] MEDS ORDERED: LORazepam 2 MG/ML SDV ONE (20:22)
[2021-12-19] MEDS ORDERED: OLANZapine 10 MG Vial ONE (20:23)
[2021-12-20 06:45] LABS: ESTIMATED GFR 46 mL/min (>60)
[2021-12-20 07:02] LABS: PO2 ARTERIAL,POC 63 mmHg (83-108)
[2021-12-20] MEDS ORDERED: Polyethylene Glycol 3350 Powder 17 GM Packet ONE (08:20)
[2021-12-20] MEDS ORDERED: Acetaminophen/HYDROcodone 325-5 MG Tab ONE (08:50)
[2021-12-20] MEDS ORDERED: Nicotine 14 MG/24 Hr Patch ONE (15:10)
[2021-12-20] MEDS ORDERED: Docusate Sodium 100 MG Cap ONE (20:04)
[2021-12-21] MEDS ORDERED: Cyproheptadine 4 MG Tab ONE (06:43)
[2021-12-21 07:05] LABS: ESTIMATED GFR 46 mL/min (>60)
[2021-12-21] MEDS ORDERED: Docusate Sodium 100 MG Cap ONE (08:37)
[2021-12-21] MEDS ORDERED: predniSONE 20 MG Tab ONE (08:38)
[2021-12-21] MEDS ORDERED: Polyethylene Glycol 3350 Powder 17 GM Packet ONE (08:38)
[2021-12-21] MEDS ORDERED: Ondansetron 4 MG Tab.DIS ONE (09:13)
[2021-12-21] MEDS ORDERED: LORazepam 1 MG Tab ONE (09:43)
== END 2021-12-21 15:00 | DRG 191 ==
LOC: FB.ED 16:34 → FB.MS 21:15 → FB.ED 21:45 → OBSVTOIN 12-16 09:15 → FB.MS 12-16 09:16 → UNDODISIN 12-21 15:00
PROVIDERS: ADMIT Family Medicine; ATTEND Family Medicine
DX: J44.1 Chronic obstructive pulmonary disease with (acute) exacerbation (principal); E87.1 Hypo-osmolality and hyponatremia; E87.4 Mixed disorder of acid-base balance; R44.3 Hallucinations, unspecified; R06.89 Other abnormalities of breathing; D64.9 Anemia, unspecified; G25.81 Restless legs syndrome; K21.9 Gastro-esophageal reflux disease without esophagitis; G47.00 Insomnia, unspecified; F31.9 Bipolar disorder, unspecified; D63.8 Anemia in other chronic diseases classified elsewhere; F41.0 Panic disorder [episodic paroxysmal anxiety]; M54.9 Dorsalgia, unspecified; I11.0 Hypertensive heart disease with heart failure; I50.9 Heart failure, unspecified; G89.29 Other chronic pain; R41.0 Disorientation, unspecified; E87.6 Hypokalemia; K59.00 Constipation, unspecified; Z99.81 Dependence on supplemental oxygen; Z88.5 Allergy status to narcotic agent; Z88.8 Allergy status to other drugs, medicaments and biological substances; F17.200 Nicotine dependence, unspecified, uncomplicated; J81.1 Chronic pulmonary edema; I48.91 Unspecified atrial fibrillation; Z20.822 Contact with and (suspected) exposure to COVID-19
CPT/HCPCS: 0241U; 36415; 80048; 80053; 81001; 82803; 82947; 83880; 84443; 84484; 85025; 85027; 85379; 87086; 94640; 96374; 99285; A9270-GY; J2920; J3490; J7620

== ENCOUNTER 2022-03-15 12:14 | Observation (INO) | payer MEDICARE, MEDICAID ==
[2022-03-15 13:14] LABS: ESTIMATED GFR 81 mL/min (>60)
[2022-03-15] MEDS ORDERED: Potassium Chloride 20 MEQ Tab.ER PO ONE (13:23)
[2022-03-15 14:43] LABS: BASE EXCESS VENOUS,POC 21 mmol/L (-2 - 3+); PCO2 VENOUS,POC 97 mmHg (41-51); PH VENOUS,POC 7.34 pH Units (7.32-7.43)
[2022-03-15] MEDS ORDERED: Sodium Chloride 0.9% 10 ML Syringe FLUSH PRN (16:37)
[2022-03-15] MEDS ORDERED: Ondansetron 4 MG/2 ML SDV IV PRN (17:15)
[2022-03-15] MEDS ORDERED: Acetaminophen 325 MG Tab PO PRN (17:15)
[2022-03-15] MEDS: cefTRIAXone 1 GM Vial IVPUSH SCH (17:18)
[2022-03-15] MEDS ORDERED: CYPROHEPTADINE 4 MG PO PRN (17:20)
[2022-03-15] MEDS ORDERED: Albuterol 8 GM Inhaler INH PRN (17:20)
[2022-03-15] MEDS ORDERED: LORazepam 0.5 MG Tab PO PRN (17:20)
[2022-03-15] MEDS ORDERED: Cyclobenzaprine 10 MG Tab *PTOM PO PRN (17:20)
[2022-03-15] MEDS: Enoxaparin 40 MG/0.4 ML Syringe SUBCUT SCH (19:19)
[2022-03-15] MEDS: Potassium Chloride 20 MEQ Tab.ER PO SCH ×2 (20:53→22:34)
[2022-03-15] MEDS ORDERED: VERAPAMIL PM 100 MG PO SCH (21:00)
[2022-03-15] MEDS ORDERED: rOPINIRole 0.5 MG Tab PO SCH (21:00)
[2022-03-15] MEDS: Albuterol/Ipratropium 3.0-0.5 MG/3 ML Neb Soln *PTOM NEB SCH (21:28)
[2022-03-15] MEDS: Baclofen 10 MG Tab PO SCH (21:28)
[2022-03-15] MEDS: BENZTROPINE 1 MG PO SCH (22:15)
[2022-03-15] MEDS ORDERED: Verapamil 120 MG Tab.ER PO SCH (22:30)
[2022-03-16] MEDS ORDERED: Magnesium Hydroxide 400 MG/5 ML Susp 30 ML Cup PO PRN (00:55)
[2022-03-16] MEDS: Potassium Chloride 20 MEQ Tab.ER PO SCH ×2 (01:21→03:09)
[2022-03-16] MEDS: Sodium Chloride 0.9% 1,000 ML IV SCH ×2 (03:38→14:32)
[2022-03-16] MEDS: Albuterol/Ipratropium 3.0-0.5 MG/3 ML Neb Soln *PTOM NEB SCH ×3 (06:05→23:53)
[2022-03-16] MEDS: Pantoprazole 40 MG Tab.CR *PTOM PO SCH ×2 (06:06→06:32)
[2022-03-16 06:57] LABS: ESTIMATED GFR 95 mL/min (>60)
[2022-03-16] MEDS ORDERED: predniSONE 20 MG Tab PO SCH (08:00)
[2022-03-16] MEDS ORDERED: Potassium Chloride 20 MEQ Tab.ER PO SCH (09:00)
[2022-03-16] MEDS ORDERED: Sodium Polystyrene Sulfonate 15 GM/60 ML Susp 60 ML Bot PO ONE (09:56)
[2022-03-16] MEDS ORDERED: BACLOFEN 10 MG PO PRN (12:00)
[2022-03-16] MEDS ORDERED: rOPINIRole 0.5 MG Tab *PTOM PO PRN (12:00)
[2022-03-16] MEDS: ROFLUMILAST 500 MCG PO SCH (12:00)
[2022-03-16] MEDS: Metoprolol Succinate 50 MG Tab.ER *PTOM PO SCH (12:01)
[2022-03-16] MEDS: lamoTRIgine 100 MG Tab *PTOM PO SCH (12:01)
[2022-03-16] MEDS: Magnesium Chloride 64 MG Tab.ER PO SCH (12:01)
[2022-03-16] MEDS: Escitalopram 20 MG Tab *PTOM PO SCH (12:01)
[2022-03-16] MEDS: FLUTICASONE INH SCH (12:02)
[2022-03-16] MEDS: UMECLIDIN INH SCH (12:02)
[2022-03-16] MEDS: VILANTER INH SCH (12:02)
[2022-03-16] MEDS: predniSONE 5 MG Tab *PTOM PO SCH (12:02)
[2022-03-16] MEDS: Baclofen 10 MG Tab PO SCH (12:03)
[2022-03-16] MEDS: Enoxaparin 40 MG/0.4 ML Syringe SUBCUT SCH (17:02)
[2022-03-16] MEDS: cefTRIAXone 1 GM Vial IVPUSH SCH (17:03)
[2022-03-16] MEDS ORDERED: VERAPAMIL 100 MG PO SCH (21:00)
[2022-03-16] MEDS: BENZTROPINE 1 MG PO SCH (23:52)
[2022-03-17] MEDS: Albuterol/Ipratropium 3.0-0.5 MG/3 ML Neb Soln *PTOM NEB SCH (06:54)
[2022-03-17] MEDS: Pantoprazole 40 MG Tab.CR *PTOM PO SCH (06:58)
[2022-03-17 08:18] LABS: ESTIMATED GFR 99 mL/min (>60)
[2022-03-17 09:46] VITALS: BP 96/46; PULSE 101
[2022-03-17] MEDS: Escitalopram 20 MG Tab *PTOM PO SCH (09:53)
[2022-03-17] MEDS: predniSONE 5 MG Tab *PTOM PO SCH (09:53)
[2022-03-17] MEDS: UMECLIDIN INH SCH (09:53)
[2022-03-17] MEDS: ROFLUMILAST 500 MCG PO SCH (09:53)
[2022-03-17] MEDS: VILANTER INH SCH (09:53)
[2022-03-17] MEDS: lamoTRIgine 100 MG Tab *PTOM PO SCH (09:53)
[2022-03-17] MEDS: FLUTICASONE INH SCH (09:53)
[2022-03-17] MEDS: Magnesium Chloride 64 MG Tab.ER PO SCH (09:53)
[2022-03-17] MEDS: Metoprolol Succinate 50 MG Tab.ER *PTOM PO SCH (10:06)
== END 2022-03-17 13:08 ==
LOC: FB.ED 12:14 → FB.MS 19:36
PROVIDERS: ADMIT Emergency Medicine; ATTEND Family Medicine
DX: E87.5 Hyperkalemia (principal); R44.3 Hallucinations, unspecified; R41.0 Disorientation, unspecified; F03.90 Unspecified dementia, unspecified severity, without behavioral disturbance, psychotic disturbance, mood disturbance, and anxiety; G93.41 Metabolic encephalopathy; J44.9 Chronic obstructive pulmonary disease, unspecified; D64.9 Anemia, unspecified; F41.9 Anxiety disorder, unspecified; F31.9 Bipolar disorder, unspecified; F31.32 Bipolar disorder, current episode depressed, moderate; R53.1 Weakness; Z51.5 Encounter for palliative care; Z79.899 Other long term (current) drug therapy; Z98.890 Other specified postprocedural states; K21.9 Gastro-esophageal reflux disease without esophagitis; Z90.49 Acquired absence of other specified parts of digestive tract
CPT/HCPCS: 36415; 70450; 71101-LT; 73030-LT; 80048; 80053; 81001; 82550; 83735; 83880; 84132; 84443; 84484; 85025; 87086; 93005; 94640; 94762; 96372; 96374; 99285; A9270-GY; J0696; J1650; J7030; J7512; J7620; U0002

== ENCOUNTER 2022-04-20 10:04 | Day surgery (SDC) | payer MEDICARE, MEDICAID ==
[~2022-04-20 10:04] MED LIST changes: +Lactated Ringers 1,000 ML IV PRN; -Lactated Ringers 1,000 ML IV SCH; +Sodium Chloride 0.9% 10 ML Syringe FLUSH PRN
[2022-04-20] MEDS ORDERED: fentaNYL 100 MCG/2 ML SDV IV ONE (10:05)
[2022-04-20] MEDS ORDERED: Midazolam 1 MG/ML 2 ML SDV IV ONE (10:05)
[2022-04-20 11:59] VITALS: BP 115/75; PULSE 115
[2022-04-20] MEDS ORDERED: acetaZOLAMIDE 500 MG Cap.ER PO ONE (12:15)
== END 2022-04-20 12:27 ==
LOC: FB.SDS 10:04
PROVIDERS: ATTEND Ophthalmology
DX: H25.813 Combined forms of age-related cataract, bilateral (principal); H35.363 Drusen (degenerative) of macula, bilateral; H02.831 Dermatochalasis of right upper eyelid; H02.834 Dermatochalasis of left upper eyelid; H52.13 Myopia, bilateral; H52.223 Regular astigmatism, bilateral; J44.1 Chronic obstructive pulmonary disease with (acute) exacerbation; F31.9 Bipolar disorder, unspecified; G47.09 Other insomnia; F41.0 Panic disorder [episodic paroxysmal anxiety]; J96.11 Chronic respiratory failure with hypoxia; F10.21 Alcohol dependence, in remission; F17.210 Nicotine dependence, cigarettes, uncomplicated; Z79.899 Other long term (current) drug therapy; Z98.890 Other specified postprocedural states; Z88.6 Allergy status to analgesic agent; Z88.5 Allergy status to narcotic agent; Z88.8 Allergy status to other drugs, medicaments and biological substances
CPT/HCPCS: 00142; A9270-GY; J2250; J3010; V2632

== ENCOUNTER 2022-05-04 10:03 | Day surgery (SDC) | payer MEDICARE, MEDICAID ==
[2022-05-04] MEDS ORDERED: fentaNYL 100 MCG/2 ML SDV IV ONE (10:04)
[2022-05-04] MEDS ORDERED: Midazolam 1 MG/ML 2 ML SDV IV ONE (10:04)
[2022-05-04 11:44] VITALS: BP 142/76; PULSE 89
[2022-05-04] MEDS ORDERED: acetaZOLAMIDE 500 MG Cap.ER PO ONE (12:00)
== END 2022-05-04 12:17 ==
LOC: FB.SDS 10:03
PROVIDERS: ATTEND Ophthalmology
DX: H25.89 Other age-related cataract (principal); F31.9 Bipolar disorder, unspecified; K21.9 Gastro-esophageal reflux disease without esophagitis; J43.9 Emphysema, unspecified; G47.00 Insomnia, unspecified; R63.4 Abnormal weight loss; F41.0 Panic disorder [episodic paroxysmal anxiety]; F10.21 Alcohol dependence, in remission; Z98.890 Other specified postprocedural states; Z79.899 Other long term (current) drug therapy; Z88.6 Allergy status to analgesic agent; Z88.5 Allergy status to narcotic agent; Z88.8 Allergy status to other drugs, medicaments and biological substances; Z68.20 Body mass index [BMI] 20.0-20.9, adult
CPT/HCPCS: 00142; A9270-GY; J2250; J3010; J3490; J7120; V2632

== ENCOUNTER 2022-06-30 02:15 | Emergency (ER) | payer MEDICARE, MEDICAID ==
[2022-06-30] MEDS ORDERED: Rocuronium 100 MG/10 ML MDV IV ONE (02:16)
[2022-06-30] MEDS ORDERED: Succinylcholine 200 MG/10 ML MDV IV ONE (02:16)
[2022-06-30] MEDS ORDERED: Midazolam 1 MG/ML 2 ML SDV IV ONE (02:16)
[2022-06-30] MEDS ORDERED: Propofol 200 MG/20 ML SDV IV ONE (02:16)
[2022-06-30] MEDS ORDERED: ePHEDrine 50 MG/ML SDV IV ONE (02:16)
[2022-06-30] MEDS ORDERED: Albuterol/Ipratropium 3.0-0.5 MG/3 ML Neb Soln NEB ONE (02:30)
[2022-06-30] MEDS ORDERED: Albuterol/Ipratropium 3.0-0.5 MG/3 ML Neb Soln ONE (02:30)
[2022-06-30 02:39] LABS: BASE EXCESS VENOUS,POC 9 mmol/L (-2 - 3+); PCO2 VENOUS,POC 83 mmHg (41-51); PH VENOUS,POC 7.27 pH Units (7.32-7.43)
[2022-06-30 02:43] LABS: ESTIMATED GFR 99 mL/min (>60)
[2022-06-30] MEDS ORDERED: Sodium Chloride 0.9% 1,000 ML IV ONE ×2 (02:57→03:11)
[2022-06-30] MEDS ORDERED: Levofloxacin/Dextrose 5%-Water 750 MG in Premix Bag 1 BAG IV ONE (02:58)
[2022-06-30] MEDS ORDERED: methylPREDNISolone Sod Succ 125 MG in Sodium Chloride 0.9% 100 ML IV ONE (03:00)
[2022-06-30] MEDS: Norepinephrine Bit/D5W Premix 250 ML ONE ×2 (03:08→06:03)
[2022-06-30] MEDS ORDERED: Norepinephrine Bit/D5W Premix 4 MG in Premix Bag 1 BAG IV SCH (03:08)
[2022-06-30] MEDS ORDERED: Norepinephrine 4 MG in Dextrose 5% in Water 246 ML IV SCH ×2 (03:08)
[2022-06-30] MEDS ORDERED: Magnesium Sulfate/Water 40 GM/1,000 ML BAG IV SCH (03:15)
[2022-06-30 04:32] LABS: PCO2 VENOUS,POC 96 mmHg (41-51)
[2022-06-30 04:33] LABS: PH VENOUS,POC 7.21 pH Units (7.32-7.43)
[2022-06-30 04:34] LABS: BASE EXCESS VENOUS,POC 8 mmol/L (-2 - 3+)
[2022-06-30 06:22] VITALS: BP 124/51; PULSE 117
== END 2022-06-30 03:57 ==
LOC: FB.ED 02:15
DX: J96.01 Acute respiratory failure with hypoxia (principal); J96.02 Acute respiratory failure with hypercapnia; E87.29 Other acidosis; R79.82 Elevated C-reactive protein (CRP); J44.9 Chronic obstructive pulmonary disease, unspecified; I10 Essential (primary) hypertension; K21.9 Gastro-esophageal reflux disease without esophagitis; D64.9 Anemia, unspecified; R94.31 Abnormal electrocardiogram [ECG] [EKG]; F17.200 Nicotine dependence, unspecified, uncomplicated; E66.9 Obesity, unspecified; Z68.30 Body mass index [BMI] 30.0-30.9, adult; Z88.5 Allergy status to narcotic agent; Z88.8 Allergy status to other drugs, medicaments and biological substances; Z79.899 Other long term (current) drug therapy; Z99.81 Dependence on supplemental oxygen
CPT/HCPCS: 36415; 71045; 80053; 81001; 83735; 84484; 85025; 85379; 86140; 87040; 93005; 94640; 96365; 99285-25; J0330; J2250; J2704; J7030; J7620